=== PATIENT | female | born 1985 | race Two or more races ===

== ENCOUNTER 2017-08-17 07:47 | Emergency (ER) | payer MEDICAID ==
[~2017-08-17] VITALS: Ht 154.9 cm; Wt 95.3 kg
[2017-08-17 08:15] VITALS: BP 126/61
[2017-08-17] MEDS ORDERED: ACETAMINOPHEN 500 MG TAB PO ONE (09:00)
== END 2017-08-17 09:07 | disposition home or self-care (01) ==
LOC: ER 07:47
DX: S36.3 Injury of stomach (principal); X58.XXXD Exposure to other specified factors, subsequent encounter

== ENCOUNTER 2017-12-15 10:38 | Emergency (ER) | payer MEDICAID ==
[~2017-12-15] VITALS: Ht 157.5 cm; Wt 90.7 kg
[2017-12-15 14:15] VITALS: BP 110/72
== END 2017-12-15 14:41 | disposition home or self-care (01) ==
LOC: ER 10:38
DX: S93.402A Sprain of unspecified ligament of left ankle, initial encounter (principal); X58.XXXA Exposure to other specified factors, initial encounter; Y93.89 Activity, other specified; Y99.8 Other external cause status; Y92.89 Other specified places as the place of occurrence of the external cause
CPT/HCPCS: 73610; 93971

== ENCOUNTER 2018-06-04 12:13 | Emergency (ER) | payer MEDICAID ==
[~2018-06-04] VITALS: Ht 157.5 cm; Wt 88.5 kg
[2018-06-04 12:25] VITALS: BP 126/81
[2018-06-04] MEDS ORDERED: KETOROLAC TROMETH 60MG/2ML VIAL IM ONE (14:45)
== END 2018-06-04 15:25 | disposition home or self-care (01) ==
LOC: ER 12:15
DX: R10.31 Right lower quadrant pain (principal); R10.32 Left lower quadrant pain; M54.42 Lumbago with sciatica, left side; M54.41 Lumbago with sciatica, right side
CPT/HCPCS: 74176; 81002; 81025; 96372; 99284; J1885

== ENCOUNTER 2018-10-27 09:50 | Emergency (ER) | payer MEDICAID ==
[~2018-10-27] VITALS: Ht 157.5 cm; Wt 90.7 kg
[2018-10-27 10:29] VITALS: BP 104/67
[2018-10-27] MEDS ORDERED: IBUPROFEN 600 MG TAB PO ONE (11:00)
== END 2018-10-27 10:29 | disposition home or self-care (01) ==
LOC: ER 09:50
DX: M76.62 Achilles tendinitis, left leg (principal)
CPT/HCPCS: 73610; 73630

== ENCOUNTER 2020-02-09 10:54 | Emergency (ER) | payer MEDICAID ==
[~2020-02-09] VITALS: Ht 157.5 cm; Wt 93.0 kg
[2020-02-09 11:00] VITALS: BP 118/79
[2020-02-09] MEDS ORDERED: PANTOPRAZOLE 40 MG/10 ML VIAL INJ IV STA (11:00)
[2020-02-09] MEDS ORDERED: SODIUM CHLORIDE 0.9% 500 ML IVB ONE (11:00)
[2020-02-09] MEDS ORDERED: MORPHINE SULFATE 4 MG/ML SYR/VIAL IV ONE (11:00)
[2020-02-09] MEDS ORDERED: ONDANSETRON HCL 4 MG/2 ML VIAL IV ONE (11:00)
[2020-02-09 11:23] LABS: Basophils # (auto) 0 10 ^3/uL (0-0.2); Basophils % (auto) 0.4 % (0.0-2.0); Eosinophils # (auto) 0.1 10 ^3/uL (0-0.8); Eosinophils % (auto) 2.1 % (0.0-7.0); Hematocrit 40.1 % (36.0-46.0); Lymphocytes # (auto) 2.3 10 ^3/uL (0.4-5.4); Lymphocytes % (auto) 32.2 % (10.0-50.0); Mean Corpuscular Hemoglobin 31.1 pg (28.0-32.0); Mean Corpuscular Hgb Conc. 34.9 g/dL (32.0-36.0); Mean Corpuscular Volume 89.2 fL (80.0-100.0); Monocytes # (auto) 0.4 10 ^3/uL (0-1.3); Monocytes % (auto) 5.9 % (0.0-12.0); Neutrophils # (auto) 4.2 10 ^3/uL (1.6-8.6); Neutrophils % (auto) 59.4 % (37.0-80.0); Platelet Count (auto) 255 10^3/uL (140-450); White Blood Cell 7.1 10^3/uL (4.4-10.8)
[2020-02-09 11:34] LABS: Albumin 4.2 g/dL (3.4-5.0); Calcium 8.8 mg/dL (8.5-10.1); Potassium 3.2 mmol/L (3.5-5.1)
[2020-02-09 11:36] LABS: BUN/Creatinine Ratio 13.2; Bilirubin, Total 1.1 mg/dL (0.2-1.0); Total Protein 7.5 g/dL (6.4-8.2)
== END 2020-02-09 12:31 | disposition home or self-care (01) ==
LOC: ER 10:54
DX: K29.70 Gastritis, unspecified, without bleeding (principal)
CPT/HCPCS: 36415; 76705; 80053; 83690; 85025; 96361; 96374; 96375; 99284; C9113; J2270; J2405; J7040

== ENCOUNTER 2020-02-13 23:33 | Emergency (ER) | payer MEDICAID ==
[~2020-02-13] VITALS: Ht 157.5 cm; Wt 90.7 kg
[2020-02-13 23:52] VITALS: BP 51/8
[2020-02-14 00:27] LABS: Basophils # (auto) 0.1 10 ^3/uL (0-0.2); Basophils % (auto) 0.8 % (0.0-2.0); Eosinophils # (auto) 0 10 ^3/uL (0-0.8); Hematocrit 42.3 % (36.0-46.0); Hemoglobin 14.8 g/dL (12.2-16.2); Lymphocytes % (auto) 9.1 % (10.0-50.0); Mean Corpuscular Hemoglobin 31.1 pg (28.0-32.0); Mean Corpuscular Hgb Conc. 35.1 g/dL (32.0-36.0); Mean Corpuscular Volume 88.6 fL (80.0-100.0); Monocytes # (auto) 0.2 10 ^3/uL (0-1.3); Monocytes % (auto) 2.1 % (0.0-12.0); Neutrophils # (auto) 9.5 10 ^3/uL (1.6-8.6); Platelet Count (auto) 310 10^3/uL (140-450); Red Blood Cells 4.77 10^6/uL (4.0-5.20); Red Cell Distribution Width 13.1 % (11.8-14.3); White Blood Cell 10.8 10^3/uL (4.4-10.8)
[2020-02-14 00:40] LABS: Albumin 4.8 g/dL (3.4-5.0); BUN/Creatinine Ratio 10.4; Potassium 3.2 mmol/L (3.5-5.1)
[2020-02-14 00:43] LABS: Bilirubin, Total 1.4 mg/dL (0.2-1.0)
[2020-02-14 01:25] LABS: Calcium 9.6 mg/dL (8.5-10.1)
== END 2020-02-14 00:59 | disposition left against medical advice (07) ==
LOC: ER 23:34
DX: R10.12 Left upper quadrant pain (principal); R11.2 Nausea with vomiting, unspecified; Z53.21 Procedure and treatment not carried out due to patient leaving prior to being seen by health care provider
CPT/HCPCS: 36415; 80053; 84702; 85025

== ENCOUNTER 2020-03-01 12:36 | Emergency (ER) | payer MEDICAID ==
[~2020-03-01] VITALS: Ht 157.5 cm; Wt 93.0 kg
[2020-03-01 12:50] VITALS: BP 144/122
[2020-03-01] MEDS ORDERED: SODIUM CHLORIDE 0.9% 1,000 ML IVB ONE (13:00)
[2020-03-01] MEDS ORDERED: HYDROmorphone HCL 2 MG/ML VL IV ONE (13:00)
[2020-03-01] MEDS ORDERED: PANTOPRAZOLE 40 MG/10 ML VIAL INJ IV STA (13:00)
[2020-03-01] MEDS ORDERED: PROCHLORPERAZINE EDISYLATE 5 MG/ML 2ML VIAL IV ONE (13:00)
[2020-03-01 14:51] LABS: Basophils # (auto) 0.1 10 ^3/uL (0-0.2); Basophils % (auto) 0.9 % (0.0-2.0); Eosinophils # (auto) 0 10 ^3/uL (0-0.8); Eosinophils % (auto) 0.3 % (0.0-7.0); Hematocrit 45.8 % (36.0-46.0); Lymphocytes # (auto) 1.1 10 ^3/uL (0.4-5.4); Mean Corpuscular Hemoglobin 31.2 pg (28.0-32.0); Mean Corpuscular Hgb Conc. 34.9 g/dL (32.0-36.0); Mean Corpuscular Volume 89.3 fL (80.0-100.0); Monocytes # (auto) 0.6 10 ^3/uL (0-1.3); Monocytes % (auto) 5.7 % (0.0-12.0); Neutrophils # (auto) 9.1 10 ^3/uL (1.6-8.6); Neutrophils % (auto) 83.1 % (37.0-80.0); Nucleated Red Blood Cells % 0.1 %; Platelet Count (auto) 304 10^3/uL (140-450); Red Blood Cells 5.12 10^6/uL (4.0-5.20); Red Cell Distribution Width 13.5 % (11.8-14.3); White Blood Cell 10.9 10^3/uL (4.4-10.8)
[2020-03-01 15:17] LABS: Albumin 4.4 g/dL (3.4-5.0); Calcium 9.6 mg/dL (8.5-10.1); Potassium 3.1 mmol/L (3.5-5.1)
[2020-03-01 15:21] LABS: BUN/Creatinine Ratio 11.1; Bilirubin, Total 1.2 mg/dL (0.2-1.0); Total Protein 8.1 g/dL (6.4-8.2)
== END 2020-03-01 18:20 | disposition home or self-care (01) ==
LOC: ER 12:36
DX: K29.00 Acute gastritis without bleeding (principal); R11.10 Vomiting, unspecified; F12.90 Cannabis use, unspecified, uncomplicated
CPT/HCPCS: 36415; 80053; 83690; 85025; 99283; J7030

== ENCOUNTER 2022-07-12 23:14 | Emergency (ER) | payer MEDICAID ==
[~2022-07-12] VITALS: Ht 152.4 cm; Wt 65.0 kg
[2022-07-13 01:38] VITALS: BP 116/76
[2022-07-13] MEDS ORDERED: ACET-1158 PO (01:52)
[2022-07-13] MEDS ORDERED: SULF800T7 PO (01:52)
[2022-07-13] MEDS ORDERED: TETANUS-DIPTH-ACEL PERTUSSIS 0.5ML SYR Tdap IM ONE (02:00)
[2022-07-13] MEDS ORDERED: ACETAMINOPHEN 325 MG TAB PO ONE (02:15)
== END 2022-07-13 02:20 | disposition home or self-care (01) ==
LOC: ER 23:14
DX: S80.862A Insect bite (nonvenomous), left lower leg, initial encounter (principal); Z79.899 Other long term (current) drug therapy; W57.XXXA Bitten or stung by nonvenomous insect and other nonvenomous arthropods, initial encounter; Y93.89 Activity, other specified; Y92.89 Other specified places as the place of occurrence of the external cause; Y99.8 Other external cause status
CPT/HCPCS: 90471; 90715

== ENCOUNTER 2024-07-02 00:48 | Inpatient (IN) | payer MEDICAID, OTHER ==
[~2024-07-02] VITALS: Ht 157.5 cm; Wt 75.1 kg
[2024-07-02] VITALS (8 sets, daily range): BP systolic 99–116; BP diastolic 56–82; PULSE 78–100; RESP 17–20; TEMP 97.9–98.2; O2SAT 95–99
[~2024-07-02 00:48] MED LIST: ACET500T58 PO; CEPH250C PO; ERGO1CAP23 PO; METR-344 PO; PANT40T PO; PANT40TA2 PO; SULF800T23 PO; ZOFR4T PO
--- NOTE | 2024-07-02 01:28 | ED.PDOC ---
General HPI Comments 39-year-old female who came to ER for flank pains. Has a history of kidney stones. States for the past 2 days, episodes of sharp, aching, cramping bilateral flank pains, left greater than right, associated with nausea, vomiting, diarrhea and dysuria. States pain is similar to when she had kidney stones before Chief Complaint: Flank Pain Time Seen by MD: 01:27 Reviewed notes: Nurses Notes Allergies: Coded Allergies: No Known Drug Allergy (Verified Allergy, Unknown, 07/02/24) Information Source: Patient Mode of Arrival: Ambulatory Severity: Moderate Inability to void: Mild Timing: Days Duration: Intermittent Has not urinated for: Minutes Onset: Spontaneous Symptoms: Dysuria History of: Kidney stone Location: (R) Flank, (L)Flank associated signs and symptoms: Nausea, Vomiting, Flank Pain, Back Pain, Dysuria Past Medical History PAST MEDICAL HISTORY: Kidney Stones Surgical History: Denies all surgeries MANAGER 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 INFRASTRU[employer]URE Hx Family History Family History: Reviewed,noncontributory to illness Social History Smoker: Non-Smoker Alcohol: Denies ETOH Use Drugs: Denies Drug Use Lives In: Home Constitutional: denies: chills, diaphoresis, fatigue, fever, malaise, sweats, weakness, others EENTM: denies: blurred vision, double vision, ear bleeding, ear discharge, ear drainage, ear pain, ear ringing, eye pain, eye redness, hearing loss, mouth pa in, mouth swelling, nasal discharge, nose bleeding, nose congestion, nose pain, photophobia, tearing, throat pain, throat swelling, voice changes, others Respiratory: denies: cough, hemoptysis, orthopnea, SOB at rest, shortness of breath, SOB with excertion, stridor, wheezing, others Cardiovascular: denies: chest pain, dizzy spells, diaphoresis, Dyspnea on exertion, edema, irregular heart beat, left arm pain, lightheadedness, palpitations, PND, syncope, others Gastrointestinal: reports: diarrhea, nausea, vomiting; denies: abdomen distended, abdominal pain, blood streaked bowels, constipated, dysphagia, difficulty swallowing, hematemesis, melena, poor appetite, poor fluid intake, rectal bleeding, rectal pain, others Genitourinary: reports: burning, dysuria, flank pain; denies: abnormal vagina bleeding, dyspareunia, frequency, hematuria, incontinence, pain, , vagina discharge, urgency, others Neurological: denies: dizziness, fainting, headache, left sided numbness, left sided weakness, numbness, paresthesia, pre-existing deficit, right sided numbness, right sided weakness, seizure, speech problems, tingling, tremors, weakness, others Musculoskeletal: denies: back pain, gout, joint pain, joint swelling, muscle pain, muscle stiffness, neck pain, others Integumetry: denies: bruises, change in color, change in hair/nails, dryness, laceration, lesions, lumps, rash, wounds, others Allergic/Immunocompromised: denies: Difficulty Healing, Frequent Infections, Hives, Itching, others Hematologic/Lymphatic: denies: anemia, blood clots, easy bleeding, easy bruising, swollen glands, others Endocrine: denies: excessive hunger, excessive sweating, excessive thirst, excessive urination, flushing, intolerance to cold, intolerance to heat, unexplained weight gain, unexplained weight loss, others Psychiatric: denies: anxiety, bipolar disorder, depression, hopeless, panic disorder, schizophrenia, sleepless, suicidal, others Physical Exam General Appearance: No Apparent Distress, Normal HEENT: Normal ENT Inspection, Pharynx Normal, TMs Normal Neck: Full Range of Motion, Non-Tender, Normal, Normal Inspection Respiratory: Chest Non-Tender, Lungs Clear, No Accessory Muscle Use, No Respiratory Distress, Normal Breath Sounds Cardiovascular: No Edema, No JVD, No Murmur, No Gallop, Normal Peripheral Pulses, Regular Rate/Rhythm Breast Exam: Deferred Gastrointestinal: No Organomegaly, No Pulsatile Mass, Normal Bowel Sounds, Soft, Tenderness (left CVA) Genitalia: Deferred Pelvic: Deferred Rectal: Deferred Extremities: No calf tenderness, Normal capillary refill, Normal inspection, Normal range of motion, Non-tender, No pedal edema Musculoskeletal : Apperance: Normal Neurologic: Alert, portfolio architect II-XII nml as Tested, No Motor Deficits, Normal Affect, Normal Mood, No Sensory Deficits Cerebellar Function: Normal Reflexes: Normal Skin: Dry, Normal Color, Warm Lymphatic: No Adenopathy Was a procedure done? Was a procedure done?: No Differential Diagnosis Kidney stone (Female): Musculoskeletal pain, Pancreatitis, Pyelonephritis, Strain, Urinary obstruction, Urolithiasis Urinary Problem (Female): Intrauterine , Pyelonephritis, Urinary retention, Urolithiasis, UTI X-Ray, Labs, Meds, VS Vital Signs Date Time Temp Pulse Resp B/P (MAP) Pulse Ox O2 Delivery O2 Flow Rate FiO2 07/02/24 02:47 100 20 127/67 07/02/24 02:45 108 20 127/67 07/02/24 02:44 98.2 07/02/24 02:20 99 19 120/67 07/02/24 02:02 98.9 07/02/24 02:02 100 17 97 Room Air* 0 21 07/02/24 01:46 98.9 98 32 116/56 (76) 97 98.9 07/02/24 01:00 98.1 82 22 122/103 (109) 96 98.1 Lab Test 07/02/24 01:48 07/02/24 01:25 Range/Units Urine Color Light-orange Yellow Urine Clarity Turbid H Clear Urine pH 6.5 5.0-9.0 Urine Specific [place] 1.028 1.001-1.035 Urine Protein 1+ H Negative Urine Ketones Trace Negative Urine Blood 3+ H Negative /uL Urine Nitrite Negative Negative Urine Bilirubin Negative Negative Urine Urobilinogen 2 H Negative mg/dL Urine Leukocyte Esterase 2+ Negative /uL Urine RBC 2090 0 - 4 /hpf Urine Microscopic WBC 33 H 0-5 /HPF Urine Squamous Epithelial Cells Mod <5 /hpf Urine Bacteria None seen None Seen /hpf Urine Mucus Few None Seen Urine Glucose Normal Normal mg/dL Urine Test Negative Negative White Blood Count 7.4 4.4-10.8 10^3/uL Red Blood Count 4.39 4.0-5.20 10^6/uL Hemoglobin 13.8 12.2-16.2 g/dL Hematocrit 38.9 36.0-46.0 % Mean Corpuscular Volume 88.5 80.0-100.0 fL Mean Corpuscular Hemoglobin 31.5 28.0-32.0 pg Mean Corpuscular Hemoglobin Concent 35.6 32.0-36.0 g/dL Red Cell Distribution Width 12.8 11.8-14.3 % Platelet Count 323 140-450 10^3/uL Mean Platelet Volume 7.8 6.9-10.8 fL Neutrophils (%) (Auto) 65.8 37.0-80.0 % Lymphocytes (%) (Auto) 25.2 10.0-50.0 % Monocytes (%) (Auto) 7.5 0.0-12.0 % Eosinophils (%) (Auto) 0.6 0.0-7.0 % Basophils (%) (Auto) 0.9 0.0-2.0 % Neutrophils # (Auto) 4.9 1.6-8.6 10 ^3/uL Lymphocytes # (Auto) 1.9 0.4-5.4 10 ^3/uL Monocytes # (Auto) 0.6 0-1.3 10 ^3/uL Eosinophils # (Auto) 0 0-0.8 10 ^3/uL Basophils # (Auto) 0.1 0-0.2 10 ^3/uL Nucleated Red Blood Cells 0.2 % Sodium Level 141 136-145 mmol/L Potassium Level 2.7 L 3.5-5.1 mmol/L Chloride Level 100 98-107 mmol/L Carbon Dioxide Level 29 20-31 mmol/L Anion Gap 12 5-15 Blood Urea Nitrogen 8 L 9-23 mg/dL Creatinine 0.81 0.550-1.02 mg/dL Glomerular Filtration Rate Calc 95 >90 mL/min BUN/Creatinine Ratio 9.9 L 10.0-20.0 Serum Glucose 119 H 74-106 mg/dL Calcium Level 10.3 8.7-10.4 mg/dL Current Medications Medications (Trade) Dose Ordered Sig/Carla Route Start Time Stop Time Status Last Admin Sodium Chloride 1,000 ml @ 1,000 mls/hr Q1H ONCE IV 07/02/24 01:30 07/02/24 02:29 DC 07/02/24 02:01 Ondansetron HCl (Zofran) 4 mg ONCE ONCE IV 07/02/24 01:30 07/02/24 01:31 DC 07/02/24 02:01 Ketorolac Tromethamine (Toradol Injection) 15 mg ONCE ONCE IV 07/02/24 01:30 07/02/24 01:31 DC 07/02/24 02:01 Acetaminophen (Tylenol Tablet) 650 mg ONCE ONCE PO 07/02/24 01:30 07/02/24 01:31 DC 07/02/24 02:02 Morphine Sulfate 4 mg ONCE ONCE IV 07/02/24 02:15 07/02/24 02:16 DC 07/02/24 02:20 Haloperidol Lactate (Haldol) 10 mg ONCE ONCE IM 07/02/24 03:00 07/02/24 03:01 DC 07/02/24 03:06 Time of 1ST Reevaluation: 01:21 Reevaluation 1ST: Unchanged Patient Education/Counseling: Diagnosis, Treatment Family Education/Counseling: No Family Present Departure 1 Departure Time of Disposition: 03:28 (Patient presented with abdominal pain that was concerning for possible appendicits, gastritis, cholecystitis, colitis, gastroenteritis, sbo, or orther possible surgical emergency. Data: 1. I ordered and reviewed the result of at least 3 labs including a CBC, BMP, and Urinalysis. 2. I independently interpreted the following tests: CT Abdoment and Pelvis is concerning for left renal colic .Risk:This patient has a high risk of morbidity due to further diagnostic testing or treatment and may suffer from an acute abdominal process disorder. Workup reveals left renal colic with hydronephrosis and patient should be admitted for further workup. and possible expert consultation. ) Impression: Primary Impression: Renal colic on left side Additional Impression: Hydronephrosis Qualified Codes: N13.2 - Hydronephrosis with renal and ureteral calculous obstruction Disposition: ADMITTED INPATIENT Admit to: Med Surg Condition: Serious Critical Care Note Critical Care Time?: Yes Critical care comment: Intractable abdominal pain Authorized and Performed by: Gordon Castano MD Total critical care time: Approximately 38 minutes Due to a high probability of clinically significant, life threatening de terioration, the patient required my highest level of preparedness to intervene emergently and I personally spent this critical care time directly and personally managing the patient. This critical care time included obtaining a history; examining the patient; pulse oximetry; ordering and review of studies; arranging urgent treatment with development of a management plan; evaluation of patient's response to treatment; frequent reassessment; and, discussions with other providers. This critical care time was performed to assess and manage the high probability of imminent, life-threatening deterioration that could result in multi-organ failure. It was exclusive of separately billable procedures and treating other patients and teaching time. Please see my other sections and the rest of the note for further information on patient assessment and treatment. Stability Stability form required: No Heart Score Heart Score: Heart Score Response (Comments) Value History N/A 0 EKG N/A 0 Age N/A 0 Risk Factors N/A 0 Troponin N/A 0 Total 0 I personally scribed for GORDON CASTANO MD ([email or web address]) on 07/02/24 at 01:28. Electronically submitted by Joel Nguyen ([email or web address]). GORDON CASTANO MD Jul 02, 2024 01:28
[2024-07-02 01:50] LABS: Urine Bacteria None Seen /hpf (None Seen)
[2024-07-02 01:51] LABS: Basophils # (auto) 0.1 10 ^3/uL (0-0.2); Basophils % (auto) 0.9 % (0.0-2.0); Eosinophils # (auto) 0 10 ^3/uL (0-0.8); Eosinophils % (auto) 0.6 % (0.0-7.0); Hematocrit 38.9 % (36.0-46.0); Hemoglobin 13.8 g/dL (12.2-16.2); Lymphocytes # (auto) 1.9 10 ^3/uL (0.4-5.4); Lymphocytes % (auto) 25.2 % (10.0-50.0); Mean Corpuscular Hemoglobin 31.5 pg (28.0-32.0); Mean Corpuscular Hgb Conc. 35.6 g/dL (32.0-36.0); Mean Corpuscular Volume 88.5 fL (80.0-100.0); Monocytes # (auto) 0.6 10 ^3/uL (0-1.3); Monocytes % (auto) 7.5 % (0.0-12.0); Neutrophils # (auto) 4.9 10 ^3/uL (1.6-8.6); Neutrophils % (auto) 65.8 % (37.0-80.0); Nucleated Red Blood Cells % 0.2 %; Platelet Count (auto) 323 10^3/uL (140-450); Red Blood Cells 4.39 10^6/uL (4.0-5.20); Red Cell Distribution Width 12.8 % (11.8-14.3); White Blood Cell 7.4 10^3/uL (4.4-10.8)
[2024-07-02 01:59] LABS: Anion Gap 12 (5-15); Carbon Dioxide 29 mmol/L (20-31); Chloride 100 mmol/L (98-107); Sodium 141 mmol/L (136-145)
[2024-07-02 02:00] LABS: Calcium 10.3 mg/dL (8.7-10.4)
[2024-07-02] MEDS: KETOROLAC TROMETH 30 MG/ML 1ML VIAL IV ONE (02:01)
[2024-07-02] MEDS: ONDANSETRON HCL 4 MG/2 ML VIAL IV ONE (02:01)
[2024-07-02] MEDS: SODIUM CHLORIDE 0.9% 1,000 ML IV ONE (02:01)
[2024-07-02 02:02] LABS: Potassium 2.7 mmol/L (3.5-5.1)
[2024-07-02] MEDS: ACETAMINOPHEN 325 MG TAB PO ONE (02:02)
[2024-07-02 02:05] LABS: BUN/Creatinine Ratio 9.9 (10.0-20.0); Blood Urea Nitrogen 8 mg/dL (9-23); Glucose 119 mg/dL (74-106)
[2024-07-02 02:20] LABS: Urine Blood 3+ /uL (Negative); Urine Clarity Turbid (Clear); Urine Color Light-Orange (Yellow); Urine Mucus FEW (None Seen); Urine Protein, UAD 1+ (Negative); Urine Specific Gravity 1.028 (1.001-1.035); Urine Squamous Epithelial Cell MOD /hpf (<5); Urine Urobilinogen 2 mg/dL (Negative); Urine WBC 33 /HPF (0-5); Urine pH 6.5 (5.0-9.0)
[2024-07-02] MEDS: MORPHINE SULFATE 4 MG/ML SYR/VIAL IV ONE ×2 (02:20→02:47)
--- NOTE | 2024-07-02 03:05 | DVH ---
Exam: CT CT AB PEL WO CON-NO ORAL OR IV History: Flank pain Comparison Study: None available at time of dictation. Technique: Multidetector spiral CT of the abdomen was performed from lung bases to iliac crest. Imagi ng was performed without IV contrast. Axial, coronal and sagittal multiplanar reformats were obtained from the axial data set by the technologist. Radiation Dose : CT Dose: CTDI volume is 11.24 mGy. Dose-length product is 654.08 mGy*cm Findings: Evaluation of solid organs is limited due to lack of intravenous contrast use. Lung Bases: No acute or significant lung base finding. Normal heart size. No pleural or pericardial effusion. Liver: The liver is normal in size. No focal lesions. Gallbladder and Biliary Tree: Unremarkable Spleen: Unremarkable Pancreas: The pancreas is grossly normal in appearance. Adrenal Glands: Unremarkable Kidneys: Moderate left hydronephrosis and dilatation of the proximal ureter secondary to a partially obstructing proximal 0.3 cm intraureteral calcification. The right kidney is grossly normal without c alculi or hydronephrosis. Visualized Bowel: The stomach is grossly normal in appearance. Small bowel and colon are normal in ca liber and distribution. The appendix is normal in appearance. Ascites: Absent Lymphadenopathy: No mesenteric, retroperitoneal or periportal lymphadenopathy. Abdominal Wall and Mesentery: Unremarkable. Vasculature: The visualized abdominal aorta is normal in size and caliber. Evaluation of abdominal a nd pelvic vessels is limited due to lack of intravenous contrast. Musculoskeletal: No aggressive focal bony lesions, acute fractures or dislocation. Moderate to severe disc height loss at the L5-S1 level with corresponding endplate sclerosis and anterior osteophytosis . IMPRESSION: 1. Moderate left hydronephrosis secondary to a proximal partially obstructing intraureteral calculus. Radiation optimization: All CT scans at this facility use at least one of these dose optimization mari hniques: automated exposure control mA and/or kV adjustment per patient size (includes targeted exam s where dose is matched to clinical indication) or iterative reconstruction.
[2024-07-02] MEDS: HALOPERIDOL LACTATE 5 MG/ML INJ VIAL IM ONE (03:06)
[2024-07-02] MEDS: cefTRIAXone 1GM/50ML D5W 50 ML IV ONE (04:45)
[2024-07-02] MEDS ORDERED: ACETAMINOPHEN 325 MG TAB PO PRN (04:45)
[2024-07-02] MEDS ORDERED: DOCUSATE SOD 100 MG CAP PO PRN (04:45)
[2024-07-02] MEDS: POTASSIUM CHL 20 Meq TABLET PO ONE (05:12)
[2024-07-02] MEDS: POTASSIUM CHL 20MEQ/50ML 50 ML IV SCH (05:13)
[2024-07-02 05:28] LABS: Basophils # (auto) 0 10 ^3/uL (0-0.2); Basophils % (auto) 0.2 % (0.0-2.0); Eosinophils # (auto) 0 10 ^3/uL (0-0.8); Eosinophils % (auto) 0.3 % (0.0-7.0); Hematocrit 33.6 % (36.0-46.0); Hemoglobin 11.7 g/dL (12.2-16.2); Lymphocytes # (auto) 1.3 10 ^3/uL (0.4-5.4); Mean Corpuscular Hemoglobin 30.8 pg (28.0-32.0); Mean Corpuscular Hgb Conc. 34.7 g/dL (32.0-36.0); Mean Corpuscular Volume 88.6 fL (80.0-100.0); Monocytes # (auto) 0.5 10 ^3/uL (0-1.3); Monocytes % (auto) 8.2 % (0.0-12.0); Neutrophils # (auto) 3.7 10 ^3/uL (1.6-8.6); Neutrophils % (auto) 67.3 % (37.0-80.0); Nucleated Red Blood Cells % 0.1 %; Platelet Count (auto) 237 10^3/uL (140-450); Red Cell Distribution Width 12.5 % (11.8-14.3); White Blood Cell 5.5 10^3/uL (4.4-10.8)
[2024-07-02 05:41] LABS: Alanine Aminotransferase 22 U/L (7-40); Albumin 3.9 g/dL (3.2-4.8); Alkaline Phosphatase 52 U/L (46-116); Anion Gap 12 (5-15); Aspartate Aminotransferase 15 U/L (13-40); BUN/Creatinine Ratio 8.8 (10.0-20.0); Carbon Dioxide 26 mmol/L (20-31); Chloride 102 mmol/L (98-107); Sodium 140 mmol/L (136-145); Total Protein 5.7 g/dL (5.7-8.2)
[2024-07-02 05:42] LABS: Bilirubin, Total 0.8 mg/dL (0.2-1.0)
[2024-07-02] MEDS: ONDANSETRON HCL 4 MG/2 ML VIAL IV PRN (05:45)
[2024-07-02 05:47] LABS: Blood Urea Nitrogen 7 mg/dL (9-23); Calcium 8.4 mg/dL (8.7-10.4); Glucose 115 mg/dL (74-106)
[2024-07-02] MEDS: MORPHINE SULFATE INJ 2 MG/ml SYRG IV PRN (05:48)
[2024-07-02] MEDS: SODIUM CHLOR 0.9% PF (SALINE LOCK) 10ML VIAL/SYR IV SCH (05:48)
[2024-07-02 05:49] LABS: Potassium 2.3 mmol/L (3.5-5.1)
--- NOTE | 2024-07-02 05:55 | DVHHP2 ---
History of Present Illness Reason for Visit: Hydronephrosis History of Present Illness The patient is a 39-year-old female with past medical history of kidney stone presented to [facility] ED with complaint of left flank pain. Patient reports symptoms progressively get worse with cramping bilateral flank pain, left greater than right, sharp in nature, aching, associated nausea, vomiting, diarrhea, dysuria, rating 8/10 numeric scale, getting worse that prompted this visit. Patient was seen and evaluated in the ED, laboratory data shows WBC 7.4, platelets 323, sodium 141, potassium 2.7, BUN 8, creatinine 0.81, GFR 95, glucose 119, urinalysis positive for urinary tract infection. Abdomen/pelvis CT revealing moderate left hydronephrosis secondary to a proximal partially obstructing intraureteral calculus. Patient was given morphine sulfate 4 mg IV x1, please see medication orders section in the computer. On my assessment, patient denied chest pain, no headache, no dizziness, no shortness of breaths, no nausea, no vomiting at this moment, no fever, no chills. Patient was admitted for further evaluation and medical management. Past Medical History Kidney Stones Past Surgical History Denies all surgeries Family History Reviewed, noncontributory to the management of this case. Past Social History The patient lives at home, denies smoking, alcohol or illicit drugs abuse. Review of Systems Constitutional: No: Fever, Chills, Sweats, Weakness, Malaise, Other Eyes: No: Pain, Vision change, Conjunctivae inflammation, Eyelid inflammation, Other, Redness ENT: No: Ear pain, Ear discharge, Nose pain, Nose discharge, Nose congestion, Mouth pain, Mouth swelling, Throat pain, Throat swelling, Other Respiratory: No: Cough, Dry, Shortness of breath, SOB with excertion, Wheezing, Hemoptysis, Pleuritic Pain, Sputum, Wheezing, Other Cardiovascular: No: Chest Pain, Palpitations, Orthopnea, Paroxysmal Noc. Dyspnea, Edema, Lt Headedness, Other Gastrointestinal: Nausea, Vomiting, Diarrhea; No: Abdominal Pain, Constipation, Melena, Hematochezia, Other Genitourinary: Dysuria; No Frequency, No Incontinence, No Hematuria, No Retention; Other (Flank pain, burning.) Musculoskeletal: No: other, neck pain, shoulder pain, arm pain, back pain, hand pain, leg pain, foot pain Skin: No: Rash, Lesions, Jaundice, Bruising, Other Neurological: No: Weakness, Numbness, Incoordination, Change in speech, Confusion, Seizures, Other Allergies: Coded Allergies: No Known Drug Allergy (Verified Allergy, Unknown, 07/02/24) Medications Current Medications Medications Dose Ordered Sig/Carla Route Start Time Stop Time Status Last Admin Dose Admin Ceftriaxone Sodium 50 ml @ 100 mls/hr DAILY@09 IV 07/03/24 09:00 Sodium Chloride 10 ml Q8HR IV 07/02/24 06:00 07/02/24 05:48 10 ML Acetaminophen/ Hydrocodone Bitart 1 tab Q4HP PRN PO 07/02/24 04:45 Ondansetron HCl 4 mg Q4HP PRN IV 07/02/24 04:45 07/02/24 05:45 4 MG Docusate Sodium 100 mg BIDPRN PRN PO 07/02/24 04:45 Acetaminophen 650 mg Q6HP PRN PO 07/02/24 04:45 Morphine Sulfate 2 mg Q4HPRN PRN IV 07/02/24 04:45 07/02/24 05:48 2 MG Potassium Chloride 50 ml @ 25 mls/hr Q2H IV 07/02/24 05:15 07/02/24 09:14 07/02/24 05:13 25 MLS/HR Exam Vital Signs Vital Signs Date Time Temp Pulse Resp B/P (MAP) Pulse Ox O2 Delivery O2 Flow Rate FiO2 07/02/24 05:48 86 22 101/60 07/02/24 04:22 98 Room Air* 0 21 07/02/24 02:44 98.2 General Appearance: Alert, Oriented X3, Cooperative, No acute distress HEENT: Atraumatic, PERRLA, EOMI, Mucous membr. moist/pink Respiratory: Clear to auscultation, Normal air movement Cardiovascular: Regular rate, Normal S1, Normal S2, No murmurs Abdominal: Normal bowel sounds, Soft, No hepatospenomegaly, No masses, Other (Flank pain) Extremities: No clubbing, No cyanosis, No edema, Normal pulses, No tenderne ss/swelling Skin: No rashes, No breakdown, No significant lesion Neuro: Normal gait, Normal speech, Strength at 5/5 X4 ext, Normal tone, Sensation intact, Cranial nerves 3-12 NL, Reflexes 2+ Psych/Mental Status: Mental status NL, Mood NL Labs/Xrays Labs Test 07/02/24 04:52 07/02/24 01:48 Range/Units White Blood Count 5.5 # 4.4-10.8 10^3/uL Red Blood Count 3.80 L 4.0-5.20 10^6/uL Hemoglobin 11.7 #L 12.2-16.2 g/dL Hematocrit 33.6 #L 36.0-46.0 % Mean Corpuscular Volume 88.6 80.0-100.0 fL Mean Corpuscular Hemoglobin 30.8 28.0-32.0 pg Mean Corpuscular Hemoglobin Concent 34.7 32.0-36.0 g/dL Red Cell Distribution Width 12.5 11.8-14.3 % Platelet Count 237 140-450 10^3/uL Mean Platelet Volume 7.8 6.9-10.8 fL Neutrophils (%) (Auto) 67.3 37.0-80.0 % Lymphocytes (%) (Auto) 24.0 10.0-50.0 % Monocytes (%) (Auto) 8.2 0.0-12.0 % Eosinophils (%) (Auto) 0.3 0.0-7.0 % Basophils (%) (Auto) 0.2 0.0-2.0 % Neutrophils # (Auto) 3.7 1.6-8.6 10 ^3/uL Lymphocytes # (Auto) 1.3 0.4-5.4 10 ^3/uL Monocytes # (Auto) 0.5 0-1.3 10 ^3/uL Eosinophils # (Auto) 0 0-0.8 10 ^3/uL Basophils # (Auto) 0 0-0.2 10 ^3/uL Nucleated Red Blood Cells 0.1 % Sodium Level 140 136-145 mmol/L Potassium Level 2.3 *L 3.5-5.1 mmol/L Chloride Level 102 98-107 mmol/L Carbon Dioxide Level 26 20-31 mmol/L Anion Gap 12 5-15 Blood Urea Nitrogen 7 L 9-23 mg/dL Creatinine 0.80 0.550-1.02 mg/dL Glomerular Filtration Rate Calc 96 >90 mL/min BUN/Creatinine Ratio 8.8 L 10.0-20.0 Serum Glucose 115 H 74-106 mg/dL Calcium Level 8.4 L 8.7-10.4 mg/dL Total Bilirubin 0.8 0.2-1.0 mg/dL Aspartate Amino Transferase (AST) 15 13-40 U/L Alanine Aminotransferase (ALT) 22 7-40 U/L Alkaline Phosphatase 52 46-116 U/L Total Protein 5.7 5.7-8.2 g/dL Albumin 3.9 3.2-4.8 g/dL Urine Color Light-orange Yellow Urine Clarity Turbid H Clear Urine pH 6.5 5.0-9.0 Urine Specific [place] 1.028 1.001-1.035 Urine Protein 1+ H Negative Urine Ketones Trace Negative Urine Blood 3+ H Negative /uL Urine Nitrite Negative Negative Urine Bilirubin Negative Negative Urine Urobilinogen 2 H Negative mg/dL Urine Leukocyte Esterase 2+ Negative /uL Urine RBC 2090 0 - 4 /hpf Urine Microscopic WBC 33 H 0-5 /HPF Urine Squamous Epithelial Cells Mod <5 /hpf Urine Bacteria None seen None Seen /hpf Urine Mucus Few None Seen Urine Glucose Normal Normal mg/dL Urine Test Negative Negative PATIENT: ESTEFANI MEJIAS ACCT: [id number] UNIT: [id number] : 1985 LOC: ER ROOM / BED: / AGE / SEX: 39 / F ADM STATUS: REG ER SERVICE 0233 ORDERING PHYSICIAN: GORDON ADAMS MD PROCEDURE(s): ABPL - CT AB PEL WO CON-NO ORAL OR IV REASON: Flank pain ORDER NUMBER(s): [id number], ACCESSION NUMBER(s): [id number] Exam: CT CT AB PEL WO CON-NO ORAL OR IV History: Flank pain Comparison Study: None available at time of dictation. Technique: Multidetector spiral CT of the abdomen was performed from lung bases to iliac crest. Imaging was performed without IV contrast. Axial, coronal and sagittal multiplanar reformats were obtained from the axial data set by the technologist. Radiation Dose : CT Dose: CTDI volume is 11.24 mGy. Dose-length product is 654.08 mGy*cm Findings: Evaluation of solid organs is limited due to lack of intravenous contrast use. Lung Bases: No acute or significant lung base finding. Normal heart size. No pleural or pericardial effusion. Liver: The liver is normal in size. No focal lesions. Gallbladder and Biliary Tree: Unremarkable Spleen: Unremarkable Pancreas: The pancreas is grossly normal in appearance. Adrenal Glands: Unremarkable Kidneys: Moderate left hydronephrosis and dilatation of the proximal ureter secondary to a partially obstructing proximal 0.3 cm intraureteral calcification. The right kidney is grossly normal without calculi or hydronephrosis. Visualized Bowel: The stomach is grossly normal in appearance. Small bowel and colon are normal in caliber and distribution. The appendix is normal in appearance. Ascites: Absent Lymphadenopathy: No mesenteric, retroperitoneal or periportal lymphadenopathy. Abdominal Wall and Mesentery: Unremarkable. Vasculature: The visualized abdominal aorta is normal in size and caliber. Evaluation of abdominal and pelvic vessels is limited due to lack of intravenous contrast. Musculoskeletal: No aggressive focal bony lesions, acute fractures or dislocation. Moderate to severe disc height loss at the L5-S1 level with corresponding endplate sclerosis and anterior osteophytosis. IMPRESSION: 1. Moderate left hydronephrosis secondary to a proximal partially obstructing intraureteral calculus. Assessment/Plan Assessment/Plan Renal colic on left side Hypokalemia Hydronephrosis Urinary tract infection Hydronephrosis with renal and ureteral calculous obstruction Plan 1. Admit to Med-Surg unit 2. Breathing treatment 3. Pain control management 4. Management of fluids and electrolytes 5. Consultation for Urology 6. Diagnostic tests abdomen/pelvis CT 7. DVT prophylaxis-on SCDs 8. Repeat labs CBC, CMP in a.m. 9. Continue with current medical management 10. Treatment plan discussed with patient and RN. Patient verbalized understanding. Plan discussed with: Patient, Other (RN) My Orders Orders - MOY GAMBINO DNP Procedure Category Date Status Time Urine Bacterial LYNN 07/02/24 In Process Culture 04:33 Allergies ASPEN 07/02/24 In Process 04:33 Code Status CODE 07/02/24 Transmitted 04:33 Sodium Chloride Lock PHA 07/02/24 In Process (Saline Lock Ns) 06:00 Oxygen Per Hour RT 07/02/24 Transmitted 04:33 Hydrocodone-Acet PHA 07/02/24 In Process 5/325mg Tab ([place] 04:45 Ondansetron Hcl PHA 07/02/24 In Process (Zofran) 04:45 Docusate Sodium PHA 07/02/24 In Process Capsule (Colace 04:45 Complete Blood Count LAB 07/03/24 Verified 04:00 Comprehensive LAB 07/03/24 Verified Metabolic Panel 04:00 Cardiac DIET 07/02/24 Transmitted Diet-2gna,Lofat,Lochol Breakfast Condition: Serious ASPEN 07/02/24 In Process 04:33 Acetaminophen Tablet PHA 07/02/24 In Process (Tylenol Tablet) 04:45 Bedrest With Bathroom ASPEN 07/02/24 In Process Privileg 04:33 Morphine Sulfate PHA 07/02/24 In Process Injection 04:45 Sequential ASPEN 07/02/24 In Process Compression Device Ceftriaxone 1gm/50ml PHA 07/03/24 In Process D5w (Rocephin) 09:00 Potassium Chl PHA 07/02/24 In Process 20meq/50ml (Potassium 05:15 Problem List: (1) Renal colic on left side (2) Hypokalemia (3) Urinary tract infection (4) Hydronephrosis (5) Hydronephrosis with renal and ureteral calculous obstruction Date of Service: Jul 02, 2024 Billing Provider: MOY GAMBINO DNP Common Visit Codes: 23739-ISQNEAJ INP/OBS CARE (HIGH) MOY GAMBINO DNP Jul 02, 2024 05:55
[2024-07-02] MEDS ORDERED: MORPHINE SULFATE INJ 2 MG/ml SYRG IV PRN (06:00)
[2024-07-02] MEDS ORDERED: NITROGLYCERIN 0.4 MG SL TAB SL PRN (06:00)
[2024-07-02] MEDS: POTASSIUM EFFERVESENT TAB 25 MEQ PO STA (09:58)
--- NOTE | 2024-07-02 14:42 | DVHPNRES ---
Progress Note Date Seen: Jul 02, 2024 Resident Creating Document: GONZALO LOBATO RESIDENT Has the PT tested + for MRSA If YES, has PT been informed?: No Medical Necessity Reason Pt with a Central, PICC or Fol: No Subjective Review of Systems Lulu Fregoso is a 39-year-old female with a known history of right-sided nephrolithiasis, who presented to the emergency department with a chief complaint of worsening left flank pain. She reports that the pain began gradually but intensified over time, becoming sharp, cramping, and aching in nature. The pain is worse on the left but has also been present on the right side intermittently. Pain is rated as severe, non-radiating, and associated with nausea, vomiting, and diarrhea. On evaluation, urinalysis was positive for urinary tract infection, and a CT abdomen/pelvis revealed moderate left-sided hydronephrosis secondary to a partially obstructing proximal ureteral calculus, consistent with renal colic and obstructive uropathy. The patient was treated with IV morphine for pain control, and IV fluids for hydration and electrolyte correction. Initial labs showed hypokalemia, which was corrected with potassium replacement. Vital signs remained stable throughout the ED course. The patient is currently admitted to the med-surg unit for pain management, fluid and electrolyte monitoring, and further evaluation. A urology consultation is pending for possible intervention based on the degree of obstruction and risk of progression. hypokalemia episode, replaced. Review of Systems (ROS): Constitutional: Positive for fatigue; denies fever or chills GI: Positive for nausea, vomiting, and diarrhea : Positive for flank pain and dysuria; denies hematuria Cardiovascular: Denies chest pain or palpitations Respiratory: Denies shortness of breath or cough Neuro: Denies headache, dizziness, or syncope Skin: No rashes or lesions noted Patient reports: No new complaints Changes from previous H/P or p: No Changes Objective vital signs Vital Sign Date Time Temp Pulse Resp B/P (MAP) Pulse Ox O2 Delivery O2 Flow Rate FiO2 07/02/24 12:22 65 17 111/65 07/02/24 11:49 98.1 95 98.1 07/02/24 11:49 Room Air* 0 21 Total Intake and Output 07/01/24 07/01/24 07/02/24 15:00 23:00 07:00 Intake Total 1100 ml Balance 1100 ml medications Current Medications Medications Dose Ordered Sig/Carla Route Start Time Stop Time Status Last Admin Dose Admin Ceftriaxone Sodium 50 ml @ 100 mls/hr DAILY@09 IV 07/03/24 09:00 Sodium Chloride 10 ml Q8HR IV 07/02/24 06:00 07/02/24 14:28 10 ML Acetaminophen/ Hydrocodone Bitart 1 tab Q4HP PRN PO 07/02/24 04:45 Ondansetron HCl 4 mg Q4HP PRN IV 07/02/24 04:45 07/02/24 05:45 4 MG Docusate Sodium 100 mg BIDPRN PRN PO 07/02/24 04:45 Acetaminophen 650 mg Q6HP PRN PO 07/02/24 04:45 Morphine Sulfate 2 mg Q4HPRN PRN IV 07/02/24 04:45 07/02/24 12:22 2 MG Nitroglycerin 0.4 mg Q5MINP PRN SL 07/02/24 06:00 Morphine Sulfate 2 mg Q30M PRN IV 07/02/24 06:00 Examination Physical Exam: General: Alert, oriented, appears uncomfortable due to pain Vitals: Stable; afebrile, normotensive, normal heart rate HEENT: Mucous membranes moist Cardiac: Regular rate and rhythm, no murmurs Lungs: Clear to auscultation bilaterally Abdomen: Soft, non-distended; mild left costovertebral angle (CVA) tenderness : No suprapubic tenderness; Farley not in place Extremities: No edema Neuro: Alert and oriented 3, no focal deficits Skin: Warm and dry laboratory and microbiology Laboratory Tests 07/02/24 04:52 Test 07/02/24 04:52 Range/Units Serum Glucose 115 H 74-106 mg/dL Problem List/Assessment/Plan Problem List/Assessment/Plan #sepsis due to UTI # left-sided nephrolithiasis with moderate hydronephrosis due to partially obstructing proximal ureteral calculus causing renal colic # Acute renal colic, confirmed on imaging -admit to med surge - ceftriaxone IV - urology consult - p.r.n. - IV fluids #Hypokalemia - Corrected with electrolyte replacement #Dehydration - Secondary to vomiting and poor oral intake #History of nephrolithiasis (right side) -resolved # overweight, BMI 29 -Lifestyle modification counseling and dietary habits counseling Case discussed with Dr. Elaine Goals of care discussed with the patient for 21 minutes Code status: Full code Plan discussed with: Patient My Orders My Orders Orders - GONZALO LOBATO Procedure Category Date Status Time Potassium LAB 07/02/24 Logged 12:09 Drug Screen LAB 07/02/24 Logged 11:27 Covid19 Antigen Анна LAB 07/02/24 Logged Rapid Influenza A&B LAB 07/02/24 Logged 11:27 Date of Service: Jul 02, 2024 Billing Provider: NYDIA ELAINE MD Common Visit Codes: [id number] INP/OBS CARE(HIGH) GONZALO LOBATO Jul 02, 2024 14:42 NYDIA ELAINE MD Jul 03, 2024 10:25
[2024-07-02 15:47] LABS: COVID19 ANTIGEN SOFIA FIA NEGATIVE (NEGATIVE); Rapid Influenza A Negative (Negative); Rapid Influenza B Negative (Negative)
[2024-07-03] VITALS (7 sets, daily range): BP systolic 104–118; BP diastolic 60–72; PULSE 88–103; RESP 17–19; TEMP 98.3–99; O2SAT 96–99
[2024-07-03 05:42] LABS: Basophils # (auto) 0 10 ^3/uL (0-0.2); Basophils % (auto) 0.1 % (0.0-2.0); Eosinophils # (auto) 0 10 ^3/uL (0-0.8); Eosinophils % (auto) 0.3 % (0.0-7.0); Hematocrit 32.3 % (36.0-46.0); Hemoglobin 11.5 g/dL (12.2-16.2); Lymphocytes # (auto) 1.3 10 ^3/uL (0.4-5.4); Lymphocytes % (auto) 14.5 % (10.0-50.0); Mean Corpuscular Hemoglobin 31.5 pg (28.0-32.0); Mean Corpuscular Hgb Conc. 35.5 g/dL (32.0-36.0); Mean Corpuscular Volume 88.7 fL (80.0-100.0); Monocytes # (auto) 0.6 10 ^3/uL (0-1.3); Monocytes % (auto) 6.7 % (0.0-12.0); Neutrophils # (auto) 6.8 10 ^3/uL (1.6-8.6); Neutrophils % (auto) 78.4 % (37.0-80.0); Platelet Count (auto) 209 10^3/uL (140-450); Red Blood Cells 3.64 10^6/uL (4.0-5.20); Red Cell Distribution Width 12.8 % (11.8-14.3); White Blood Cell 8.7 10^3/uL (4.4-10.8)
[2024-07-03 06:01] LABS: Alanine Aminotransferase 20 U/L (7-40); Albumin 3.5 g/dL (3.2-4.8); Alkaline Phosphatase 59 U/L (46-116); Anion Gap 10 (5-15); Aspartate Aminotransferase 17 U/L (13-40); BUN/Creatinine Ratio 6.7 (10.0-20.0); Bilirubin, Total 1.2 mg/dL (0.2-1.0); Carbon Dioxide 25 mmol/L (20-31); Chloride 104 mmol/L (98-107); Glucose 101 mg/dL (74-106); Sodium 139 mmol/L (136-145)
[2024-07-03 06:06] LABS: Blood Urea Nitrogen 7 mg/dL (9-23); Calcium 8.5 mg/dL (8.7-10.4); Potassium 3.3 mmol/L (3.5-5.1); Total Protein 5.3 g/dL (5.7-8.2)
[2024-07-03] MEDS: cefTRIAXone 1GM/50ML D5W 50 ML IV SCH (08:53)
[2024-07-03] MEDS: POTASSIUM EFFERVESENT TAB 25 MEQ PO ONE (12:01)
--- NOTE | 2024-07-03 12:30 | DVHINCON2 ---
Date of service: Jul 03, 2024 Referring Physician Hospitalist Reason for Consultation Hydronephrosis History of Present Illness Patient has a 3 mm proximal left ureteral calculus and a nonobstructive 3 mm right renal calculus. 39-year-old female with past medical history of kidney stone presented to [facility] ED with complaint of left flank pain. Patient reports symptoms progressively get worse with cramping bilateral flank pain, left greater than right, sharp in nature, aching, associated nausea, vomiting, diarrhea, dysuria, rating 8/10 numeric scale, getting worse that prompted this visit. Patient was seen and evaluated in the ED, laboratory data shows WBC 7.4, platelets 323, sodium 141, potassium 2.7, BUN 8, creatinine 0.81, GFR 95, glucose 119, urinalysis positive for urinary tract infection. Abdomen/pelvis CT revealing moderate left hydronephrosis secondary to a proximal partially obstructing intraureteral calculus. Patient was given morphine sulfate 4 mg IV x1, please see medication orders section in the computer. On my assessment, patient denied chest pain, no headache, no dizziness, no shortness of breaths, no nausea, no vomiting at this moment, no fever, no chills. Patient was admitted for further evaluation and medical management. Past Medical History Kidney Stones Past Surgical History Denies all surgeries Family History: Cardiovascular disease G8 FATHER FH: cirrhosis G8 MOTHER Allergies: Coded Allergies: No Known Drug Allergy (Verified Allergy, Unknown, 07/03/24) Home Meds Active Scripts Ondansetron Odt 4MG Tab (ZOFRAN PO) 4 Mg Tb, 4 MG PO Q8HP PRN for 5 Days, #15 TAB ODT TAB-DISSOLVE IN MOUTH, THEN SWALLOW Prov:DAX GARCIA MD 10/13/23 Pantoprazole Sodium Sesquihydr (Protonix) 40 Mg Tab, 40 MG PO DAILY, #30 TAB Prov:DAX GARCIA MD 10/13/23 Metronidazole (Flagyl) 500 Mg Tab, 1 TAB PO BID, #14 TAB Prov:DAX GARCIA MD 09/23/23 Pantoprazole Sodium Sesquihydr (Protonix) 40 Mg Tab, 40 MG PO DAILY, #30 TAB Prov:DAX GARCIA MD 09/23/23 Ondansetron Odt 4MG Tab (ZOFRAN PO) 4 Mg Tb, 4 MG PO Q8HP PRN for 7 Days, #21 TAB ODT TAB-DISSOLVE IN MOUTH, THEN SWALLOW Prov:DAX GARCIA MD 09/23/23 Cephalexin (KEFLEX CAPSULE) 250 Mg Cp, 1 CAP PO QID for 3 Days, #12 CAP Prov:CARMINA VELEZNOMARGOTH [facility] 09/16/23 Ondansetron Odt 4MG Tab (ZOFRAN PO) 4 Mg Tb, 4 MG PO Q6HP PRN for 5 Days, #20 TAB ODT TAB-DISSOLVE IN MOUTH, THEN SWALLOW Prov:MARGOTH ARGUELLES [facility] 09/16/23 Pantoprazole Sodium Sesquihydr (Pantoprazole Sodium) 40 Mg Tab, 40 MG PO DAILY@0600 for 30 Days, #30 TAB Prov:MARGOTH ARGUELLES [facility] 09/16/23 Ergocalciferol (VITAMIN D 42420 UNIT) 50,000 [place], [address] UNIT PO Q7D for 90 Days, #16 CAP Prov:MARGOTH ARGUELLES [facility] 09/16/23 Acetaminophen (Acetaminophen) 500 Mg Tab, 500 MG PO QIDP, #30 TAB 0 Refills Prov:JANUSZ DE LOS SANTOS 07/13/22 Sulfamethoxazole W/Trimethopri (Trimethoprim/Sulfamethoxa) 1 Tab Tab, 1 TAB PO BID for 7 Days, #14 TAB 0 Refills Prov:JANUSZ DE LOS SANTOS 07/13/22 Current Medications Current Medications Medications (Trade) Dose Ordered Sig/Carla Route PRN Reason Start Time Stop Time Status Last Admin Ceftriaxone Sodium 50 ml @ 100 mls/hr DAILY@09 IV 07/03/24 09:00 07/03/24 08:53 Review of Systems Constitutional: No: Fever, Chills, Sweats, Weakness, Malaise, Other Eyes: No: Pain, Vision change, Conjunctivae inflammation, Eyelid inflammation, Other, Redness ENT: No: Ear pain, Ear discharge, Nose pain, Nose discharge, Nose congestion, Mouth pain, Mouth swelling, Throat pain, Throat swelling, Other Respiratory: No: Cough, Dry, Shortness of breath, SOB with excertion, Wheezing, Hemoptysis, Pleuritic Pain, Sputum, Wheezing, Other Cardiovascular: No: Chest Pain, Palpitations, Orthopnea, Paroxysmal Noc. Dyspnea, Edema, Lt Headedness, Other Gastrointestinal: Nausea, Vomiting, Diarrhea; No: Abdominal Pain, Constipation, Melena, Hematochezia, Other Genitourinary: Dysuria; No Frequency, No Incontinence, No Hematuria, No Retention; Other (Flank pain, burning.) Musculoskeletal: No: other, neck pain, shoulder pain, arm pain, back pain, hand pain, leg pain, foot pain Skin: No: Rash, Lesions, Jaundice, Bruising, Other Neurological: No: Weakness, Numbness, Incoordination, Change in speech, Confusion, Seizures, Other Allergies: Coded Allergies: No Known Drug Allergy (Verified Allergy, Unknown, 07/02/24) Medications Current Medications Medications Dose Ordered Sig/Carla Route Start Time Stop Time Status Last Admin Dose Admin Ceftriaxone Sodium 50 ml @ 100 mls/hr DAILY@09 IV 07/03/24 09:00 Sodium Chloride 10 ml Q8HR IV 07/02/24 06:00 07/02/24 05:48 10 ML Acetaminophen/ Hydrocodone Bitart 1 tab Q4HP PRN PO 07/02/24 04:45 Ondansetron HCl 4 mg Q4HP PRN IV 07/02/24 04:45 07/02/24 05:45 4 MG Docusate Sodium 100 mg BIDPRN PRN PO 07/02/24 04:45 Acetaminophen 650 mg Q6HP PRN PO 07/02/24 04:45 Morphine Sulfate 2 mg Q4HPRN PRN IV 07/02/24 04:45 07/02/24 05:48 2 MG Potassium Chloride 50 ml @ 25 mls/hr Q2H IV 07/02/24 05:15 07/02/24 09:14 07/02/24 05:13 25 MLS/HR Vital Signs Vital Signs Date Time Temp Pulse Resp B/P (MAP) Pulse Ox O2 Delivery O2 Flow Rate FiO2 07/03/24 09:34 70 17 110/69 07/03/24 09:00 98.3 97 98.3 07/02/24 20:00 Room Air* 0 21 Physical Exam Vital Signs Date Time Temp Pulse Resp B/P (MAP) Pulse Ox O2 Delivery O2 Flow Rate FiO2 07/02/24 05:48 86 22 101/60 07/02/24 04:22 98 Room Air* 0 21 07/02/24 02:44 98.2 General Appearance: Alert, Oriented X3, Cooperative, No acute distress HEENT: Atraumatic, PERRLA, EOMI, Mucous membr. moist/pink Respiratory: Clear to auscultation, Normal air movement Cardiovascular: Regular rate, Normal S1, Normal S2, No murmurs Abdominal: Normal bowel sounds, Soft, No hepatospenomegaly, No masses, Other (Flank pain) Extremities: No clubbing, No cyanosis, No edema, Normal pulses, No tenderness/swelling Skin: No rashes, No breakdown, No significant lesion Neuro: Normal gait, Normal speech, Strength at 5/5 X4 ext, Normal tone, Sensation intact, Cranial nerves 3-12 NL, Reflexes 2+ Psych/Mental Status: Mental status NL, Mood NL Labs/Diagnostic Data Labs Test 07/03/24 04:51 07/02/24 15:06 07/02/24 01:48 Range/Units White Blood Count 8.7 # 4.4-10.8 10^3/uL Red Blood Count 3.64 L 4.0-5.20 10^6/uL Hemoglobin 11.5 L 12.2-16.2 g/dL Hematocrit 32.3 L 36.0-46.0 % Mean Corpuscular Volume 88.7 80.0-100.0 fL Mean Corpuscular Hemoglobin 31.5 28.0-32.0 pg Mean Corpuscular Hemoglobin Concent 35.5 32.0-36.0 g/dL Red Cell Distribution Width 12.8 11.8-14.3 % Platelet Count 209 140-450 10^3/uL Mean Platelet Volume 7.5 6.9-10.8 fL Neutrophils (%) (Auto) 78.4 37.0-80.0 % Lymphocytes (%) (Auto) 14.5 10.0-50.0 % Monocytes (%) (Auto) 6.7 0.0-12.0 % Eosinophils (%) (Auto) 0.3 0.0-7.0 % Basophils (%) (Auto) 0.1 0.0-2.0 % Neutrophils # (Auto) 6.8 1.6-8.6 10 ^3/uL Lymphocytes # (Auto) 1.3 0.4-5.4 10 ^3/uL Monocytes # (Auto) 0.6 0-1.3 10 ^3/uL Eosinophils # (Auto) 0 0-0.8 10 ^3/uL Basophils # (Auto) 0 0-0.2 10 ^3/uL Nucleated Red Blood Cells 0.0 % Sodium Level 139 136-145 mmol/L Potassium Level 3.3 L 3.5-5.1 mmol/L Chloride Level 104 98-107 mmol/L Carbon Dioxide Level 25 20-31 mmol/L Anion Gap 10 5-15 Blood Urea Nitrogen 7 L 9-23 mg/dL Creatinine 1.04 H 0.550-1.02 mg/dL Glomerular Filtration Rate Calc 70 >90 mL/min BUN/Creatinine Ratio 6.7 L 10.0-20.0 Serum Glucose 101 74-106 mg/dL Calcium Level 8.5 L 8.7-10.4 mg/dL Total Bilirubin 1.2 H 0.2-1.0 mg/dL Aspartate Amino Transferase (AST) 17 13-40 U/L Alanine Aminotransferase (ALT) 20 7-40 U/L Alkaline Phosphatase 59 46-116 U/L Total Protein 5.3 L 5.7-8.2 g/dL Albumin 3.5 3.2-4.8 g/dL Influenza Type A Antigen Negative Negative Influenza Type B Antigen Negative Negative SARS-CoV-2 Antigen (Rapid) Negative NEGATIVE Urine Color Light-orange Yellow Urine Clarity Turbid H Clear Urine pH 6.5 5.0-9.0 Urine Specific [place] 1.028 1.001-1.035 Urine Protein 1+ H Negative Urine Ketones Trace Negative Urine Blood 3+ H Negative /uL Urine Nitrite Negative Negative Urine Bilirubin Negative Negative Urine Urobilinogen 2 H Negative mg/dL Urine Leukocyte Esterase 2+ Negative /uL Urine RBC 2090 0 - 4 /hpf Urine Microscopic WBC 33 H 0-5 /HPF Urine Squamous Epithelial Cells Mod <5 /hpf Urine Bacteria None seen None Seen /hpf Urine Mucus Few None Seen Urine Glucose Normal Normal mg/dL Urine Test Negative Negative Microbiology Date/Time Source Procedure Growth Status 07/02/24 01:48 Voided Urine Urine Culture - Preliminary Resulted PATIENT: ESTEFANI CORTEZ ACCT: [id number] UNIT: [id number] : 1985 LOC: [facility] ROOM / BED: [address] [place] [address] B AGE / SEX: 39 / F ADM STATUS: ADM IN SERVICE 0233 ORDERING PHYSICIAN: GRODON ADAMS MD PROCEDURE(s): ABPL - CT AB PEL WO CON-NO ORAL OR IV REASON: Flank pain ORDER NUMBER(s): [id number], ACCESSION NUMBER(s): [id number] Exam: CT CT AB PEL WO CON-NO ORAL OR IV History: Flank pain Comparison Study: None available at time of dictation. Technique: Multidetector spiral CT of the abdomen was performed from lung bases to iliac crest. Imaging was performed without IV contrast. Axial, coronal and sagittal multiplanar reformats were obtained from the axial data set by the technologist. Radiation Dose : CT Dose: CTDI volume is 11.24 mGy. Dose-length product is 654.08 mGy*cm Findings: Evaluation of solid organs is limited due to lack of intravenous contrast use. Lung Bases: No acute or significant lung base finding. Normal heart size. No pleural or pericardial effusion. Liver: The liver is normal in size. No focal lesions. Gallbladder and Biliary Tree: Unremarkable Spleen: Unremarkable Pancreas: The pancreas is grossly normal in appearance. Adrenal Glands: Unremarkable Kidneys: Moderate left hydronephrosis and dilatation of the proximal ureter secondary to a partially obstructing proximal 0.3 cm intraureteral calcification. The right kidney is grossly normal without calculi or hydronephrosis. Visualized Bowel: The stomach is grossly normal in appearance. Small bowel and colon are normal in caliber and distribution. The appendix is normal in a ppearance. Ascites: Absent Lymphadenopathy: No mesenteric, retroperitoneal or periportal lymphadenopathy. Abdominal Wall and Mesentery: Unremarkable. Vasculature: The visualized abdominal aorta is normal in size and caliber. Evaluation of abdominal and pelvic vessels is limited due to lack of intravenous contrast. Musculoskeletal: No aggressive focal bony lesions, acute fractures or dislocation. Moderate to severe disc height loss at the L5-S1 level with corresponding endplate sclerosis and anterior osteophytosis. IMPRESSION: 1. Moderate left hydronephrosis secondary to a proximal partially obstructing intraureteral calculus. Radiation optimization: All CT scans at this facility use at least one of these dose optimization techniques: automated exposure control mA and/or kV adjustment per patient size (includes targeted exams where dose is matched to clinical indication) or iterative reconstruction. ATED BY: STEVEN ROGERS MD DICTATED DATE/TIME: 07/02/24301 SIGNED BY: STEVEN ROGERS MD SIGNED DATE/TIME: 07/02/24301 CC: Assessment 3 mm left proximal ureteral calculus 3 mm right nephrolithiasis Plan/Recommendation Expulsive measures Pain control Plan discussed with: Patient, Other JULIA CACERES MD Jul 03, 2024 12:29
[2024-07-03] MEDS: MANNITOL FTV 25% 12.5 GM/50 ML 50 ML IV ONE (13:48)
[2024-07-03] MEDS: TAMSULOSIN HYDROCHLORIDE 0.4 MG CAP PO ONE (17:52)
[2024-07-03] MEDS: KETOROLAC TROMETH 30 MG/ML 1ML VIAL IV ONE (18:17)
--- NOTE | 2024-07-03 18:34 | DVHPNRES ---
Progress Note Date Seen: Jul 03, 2024 Resident Creating Document: GONZALO LOBATO RESIDENT Has the PT tested + for MRSA If YES, has PT been informed?: No Medical Necessity Reason Pt with a Central, PICC or Fol: No Subjective Review of Systems Lulu Fregoso is a 39-year-old female with a known history of right-sided nephrolithiasis, who presented to the emergency department with a chief complaint of worsening left flank pain. She reports that the pain began gradually but intensified over time, becoming sharp, cramping, and aching in nature. The pain is worse on the left but has also been present on the right side intermittently. Pain is rated as severe, non-radiating, and associated with nausea, vomiting, and diarrhea. On evaluation, urinalysis was positive for urinary tract infection, and a CT abdomen/pelvis revealed moderate left-sided hydronephrosis secondary to a partially obstructing proximal ureteral calculus, consistent with renal colic and obstructive uropathy. The patient was treated with IV morphine for pain control, and IV fluids for hydration and electrolyte correction. Patient was started on tamsulosin 0.4 mg daily and continue on morphine for pain control q.4 hours. Patient reports: Feels better Changes from previous H/P or p: Changes Review of Systems: HEENT:Normal, CVS:Normal, RESPIRATORY:Normal, GI:Normal, :Normal, MSK:Normal, NEURO:Normal Objective vital signs Vital Sign Date Time Temp Pulse Resp B/P (MAP) Pulse Ox O2 Delivery O2 Flow Rate FiO2 07/03/24 17:00 98.4 97 18 112/72 (85) 99 98.4 07/03/24 08:00 Room Air* 0 21 Total Intake and Output 07/02/24 07/02/24 07/03/24 15:00 23:00 07:00 Intake Total 118 ml 100 ml 500 ml Balance 118 ml 100 ml 500 ml medications Current Medications Medications Dose Ordered Sig/Carla Route Start Time Stop Time Status Last Admin Dose Admin Ceftriaxone Sodium 50 ml @ 100 mls/hr DAILY@09 IV 07/03/24 09:00 07/03/24 08:53 100 MLS/HR Sodium Chloride 10 ml Q8HR IV 07/02/24 06:00 07/03/24 14:25 10 ML Acetaminophen/ Hydrocodone Bitart 1 tab Q4HP PRN PO 07/02/24 04:45 Ondansetron HCl 4 mg Q4HP PRN IV 07/02/24 04:45 07/03/24 09:04 4 MG Docusate Sodium 100 mg BIDPRN PRN PO 07/02/24 04:45 Acetaminophen 650 mg Q6HP PRN PO 07/02/24 04:45 Nitroglycerin 0.4 mg Q5MINP PRN SL 07/02/24 06:00 Morphine Sulfate 2 mg Q30M PRN IV 07/02/24 06:00 Tamsulosin HCl 0.4 mg QPM PO 07/04/24 18:00 Morphine Sulfate 3 mg Q6HP PRN IV 07/03/24 18:00 Examination: GENERAL:Normal, HEENT:Normal, NECK:Normal, LUNGS:Normal, CVS:Normal, ABDOMEN:Normal, MSK:Normal, SKIN:Normal, NEURO:Normal, :Normal laboratory and microbiology Laboratory Tests 07/03/24 04:51 Test 07/03/24 04:51 Range/Units Serum Glucose 101 74-106 mg/dL Microbiology Date/Time Source Procedure Growth Status 07/02/24 01:48 Voided Urine Urine Culture - Preliminary Resulted Problem List/Assessment/Plan Problem List/Assessment/Plan #sepsis due to UTI # left-sided nephrolithiasis with moderate hydronephrosis due to partially obstructing proximal ureteral calculus causing renal colic # Acute renal colic, confirmed on imaging -admit to med surge - ceftriaxone IV - urology consult - p.r.n. - IV fluids - tamsulosin 0 4 mg p.o. daily #Hypokalemia - Corrected with electrolyte replacement #Dehydration - Secondary to vomiting and poor oral intake #History of nephrolithiasis (right side) -resolved # overweight, BMI 29 -Lifestyle modification counseling and dietary habits counseling Case discussed with Dr. Prakash Goals of care discussed with the patient for 21 minutes Code status: Full code Plan discussed with: Patient My Orders My Orders Orders - GONZALO LOBATO Procedure Category Date Status Time Tamsulosin PHA 07/04/24 In Process Hydrochloride (Flomax) 18:00 Date of Service: Jul 03, 2024 Billing Provider: NYDIA PRAKASH MD Common Visit Codes: [id number] INP/OBS CARE(MOD) GONZALO LOBATO RESIDENT Jul 03, 2024 18:34 NYDIA PRAKASH MD Jul 04, 2024 14:48
[2024-07-03] MEDS: MORPHINE SULFATE 4 MG/ML SYR/VIAL IV PRN (21:56)
[2024-07-04 01:00] VITALS: BP 109/64; PULSE 91; RESP 19; TEMP 98.3; O2SAT 98
[2024-07-04] MEDS: HYDROcodone-ACET 5/325MG TAB PO PRN (02:25)
[2024-07-04 05:00] VITALS: BP 101/53; PULSE 91; RESP 19; TEMP 97.9; O2SAT 98
[2024-07-04 06:57] LABS: Anion Gap 7 (5-15); Carbon Dioxide 27 mmol/L (20-31); Chloride 104 mmol/L (98-107); Sodium 138 mmol/L (136-145)
[2024-07-04 06:58] LABS: Calcium 8.7 mg/dL (8.7-10.4)
[2024-07-04 07:00] LABS: Potassium 3.3 mmol/L (3.5-5.1)
[2024-07-04 07:02] LABS: Basophils # (auto) 0 10 ^3/uL (0-0.2); Basophils % (auto) 0.1 % (0.0-2.0); Eosinophils # (auto) 0.1 10 ^3/uL (0-0.8); Eosinophils % (auto) 1.1 % (0.0-7.0); Hematocrit 32.5 % (36.0-46.0); Hemoglobin 11.4 g/dL (12.2-16.2); Lymphocytes # (auto) 1.4 10 ^3/uL (0.4-5.4); Mean Corpuscular Hemoglobin 31.3 pg (28.0-32.0); Mean Corpuscular Hgb Conc. 34.9 g/dL (32.0-36.0); Mean Corpuscular Volume 89.6 fL (80.0-100.0); Monocytes # (auto) 0.5 10 ^3/uL (0-1.3); Monocytes % (auto) 8.1 % (0.0-12.0); Neutrophils # (auto) 4.3 10 ^3/uL (1.6-8.6); Neutrophils % (auto) 68.7 % (37.0-80.0); Platelet Count (auto) 205 10^3/uL (140-450); Red Blood Cells 3.63 10^6/uL (4.0-5.20); Red Cell Distribution Width 12.9 % (11.8-14.3); White Blood Cell 6.3 10^3/uL (4.4-10.8)
[2024-07-04 07:03] LABS: BUN/Creatinine Ratio 9.1 (10.0-20.0); Blood Urea Nitrogen 9 mg/dL (9-23); Glucose 102 mg/dL (74-106)
[2024-07-04 08:00] VITALS: PULSE 72; PULSE 87; RESP 19; O2SAT 95
[2024-07-04 09:00] VITALS: BP 111/48; PULSE 88; RESP 16; TEMP 97.9; O2SAT 97
[2024-07-04 13:00] VITALS: BP 115/65; PULSE 99; RESP 19; TEMP 97.7; O2SAT 99
--- NOTE | 2024-07-04 14:02 | DVHPN2 ---
Progress Note - Dictate Date Seen: Jul 04, 2024 Has the PT tested + for MRSA If YES, has PT been informed?: No Medical Necessity Reason Pt with a Central, PICC or Fol: No Medical Necessity Reason URolithiasis Subjective Pain is controlled. Has not passed the stone yet. vital signs Vital Sign Date Time Temp Pulse Resp B/P (MAP) Pulse Ox O2 Delivery O2 Flow Rate FiO2 07/04/24 09:00 97.9 88 16 111/48 (69) 97 97.9 07/04/24 08:00 Room Air* 0 21 Total Intake and Output 07/03/24 07/03/24 07/04/24 15:00 23:00 07:00 Intake Total 50 ml 450 ml 1100 ml Balance 50 ml 450 ml 1100 ml medications Current Medications Medications Dose Ordered Sig/Carla Route Start Time Stop Time Status Last Admin Dose Admin Ceftriaxone Sodium 50 ml @ 100 mls/hr DAILY@09 IV 07/03/24 09:00 07/04/24 09:04 100 MLS/HR Sodium Chloride 10 ml Q8HR IV 07/02/24 06:00 07/04/24 13:46 10 ML Acetaminophen/ Hydrocodone Bitart 1 tab Q4HP PRN PO 07/02/24 04:45 07/04/24 13:33 1 TAB Ondansetron HCl 4 mg Q4HP PRN IV 07/02/24 04:45 07/04/24 13:33 4 MG Docusate Sodium 100 mg BIDPRN PRN PO 07/02/24 04:45 Acetaminophen 650 mg Q6HP PRN PO 07/02/24 04:45 Nitroglycerin 0.4 mg Q5MINP PRN SL 07/02/24 06:00 Morphine Sulfate 2 mg Q30M PRN IV 07/02/24 06:00 Tamsulosin HCl 0.4 mg QPM PO 07/04/24 18:00 Morphine Sulfate 3 mg Q6HP PRN IV 07/03/24 18:00 07/04/24 06:09 3 MG laboratory and microbiology Laboratory Tests 07/04/24 06:15 Test 07/04/24 06:15 Range/Units Serum Glucose 102 74-106 mg/dL Assessment/Plan 3 mm left proximal ureteral calculus 3 mm right nephrolithiasis Will arrange for outpatient follow up and management with [facility] Plan discussed with: Patient, Other JULIA CACERES MD 25, 2025 14:02
[2024-07-04] MEDS ORDERED: TAMS-35 PO ×2 (16:56→16:57)
[2024-07-04] MEDS ORDERED: CEPH250C PO ×2 (16:56)
[2024-07-04] MEDS ORDERED: ACET-1079 PO (16:56)
--- NOTE | 2024-07-04 17:54 | DVHDSRES ---
Discharge Summary Date of Admission Resident Creating Document: GONZALO LOBATO RESIDENT Jul 02, 2024 at 05:54 Date of Discharge: Jul 04, 2024 Admitting Diagnosis LEFT FLANK PAIN Labs/Diagnostic Data: Laboratory Results Test 07/04/24 06:15 07/03/24 04:51 07/02/24 15:06 07/02/24 01:48 White Blood Count 6.3 10^3/uL (4.4-10.8) Red Blood Count 3.63 10^6/uL (4.0-5.20) Hemoglobin 11.4 g/dL (12.2-16.2) Hematocrit 32.5 % (36.0-46.0) Mean Corpuscular Volume 89.6 fL (80.0-100.0) Mean Corpuscular Hemoglobin 31.3 pg (28.0-32.0) Mean Corpuscular Hemoglobin Concent 34.9 g/dL (32.0-36.0) Red Cell Distribution Width 12.9 % (11.8-14.3) Platelet Count 205 10^3/uL (140-450) Mean Platelet Volume 7.4 fL (6.9-10.8) Neutrophils (%) (Auto) 68.7 % (37.0-80.0) Lymphocytes (%) (Auto) 22.0 % (10.0-50.0) Monocytes (%) (Auto) 8.1 % (0.0-12.0) Eosinophils (%) (Auto) 1.1 % (0.0-7.0) Basophils (%) (Auto) 0.1 % (0.0-2.0) Neutrophils # (Auto) 4.3 10 ^3/uL (1.6-8.6) Lymphocytes # (Auto) 1.4 10 ^3/uL (0.4-5.4) Monocytes # (Auto) 0.5 10 ^3/uL (0-1.3) Eosinophils # (Auto) 0.1 10 ^3/uL (0-0.8) Basophils # (Auto) 0 10 ^3/uL (0-0.2) Nucleated Red Blood Cells 0.0 % Sodium Level 138 mmol/L (136-145) Potassium Level 3.3 mmol/L (3.5-5.1) Chloride Level 104 mmol/L (98-107) Carbon Dioxide Level 27 mmol/L (20-31) Anion Gap 7 (5-15) Blood Urea Nitrogen 9 mg/dL (9-23) Creatinine 0.99 mg/dL (0.550-1.02) Glomerular Filtration Rate Calc 74 mL/min (>90) BUN/Creatinine Ratio 9.1 (10.0-20.0) Serum Glucose 102 mg/dL (74-106) Calcium Level 8.7 mg/dL (8.7-10.4) Total Bilirubin 1.2 mg/dL (0.2-1.0) Aspartate Amino Transferase (AST) 17 U/L (13-40) Alanine Aminotransferase (ALT) 20 U/L (7-40) Alkaline Phosphatase 59 U/L (46-116) Total Protein 5.3 g/dL (5.7-8.2) Albumin 3.5 g/dL (3.2-4.8) Influenza Type A Antigen Negative (Negative) Influenza Type B Antigen Negative (Negative) SARS-CoV-2 Antigen (Rapid) Negative (NEGATIVE) Urine Color Light-orange (Yellow) Urine Clarity Turbid (Clear) Urine pH 6.5 (5.0-9.0) Urine Specific Kelly 1.028 (1.001-1.035) Urine Protein 1+ (Negative) Urine Ketones Trace (Negative) Urine Blood 3+ /uL (Negative) Urine Nitrite Negative (Negative) Urine Bilirubin Negative (Negative) Urine Urobilinogen 2 mg/dL (Negative) Urine Leukocyte Esterase 2+ /uL (Negative) Urine RBC 2090 /hpf (0 - 4) Urine Microscopic WBC 33 /HPF (0-5) Urine Squamous Epithelial Cells Mod /hpf (<5) Urine Bacteria None seen /hpf (None Seen) Urine Mucus Few (None Seen) Urine Glucose Normal mg/dL (Normal) Urine Test Negative (Negative) Other Laboratory Tests 07/04/24 06:15 Brief Hx & Hospital Course: HPI: 39-year-old female patient with known history of right-sided nephrolithiasis who presented to the emergency department with worsening left flank pain. The pain began gradually and progressed to sharp, cramping, aching pain worse on the left PAD intermittently present on the right. She also reported nausea vomiting and diarrhea. Hospital course Patient rated the pain as severe and nonradiating. Evaluation include CT scan of the abdomen and pelvis which showed moderate left-sided hydronephrosis secondary to a partially obstructing proximal ureteral stone, consistent with renal colic and obstructive uropathy. Urinalysis was positive for UTI confirming superimposed infection. Patient was seen by Urology and treated with morphine fluids and tamsulosin 0.4 mg daily and symptoms improved with therapeutic patient reported feeling better at time of discharge sliding Disposition: Discharged to home Operations or Procedures [place] [address] Ph: [phone] DIAGNOSTIC IMAGING Diagnostic Imaging Report : [id number] Signed PATIENT: ESTEFANI CORTEZ ACCT: [id number] UNIT: [id number] : 1985 LOC: [facility] ROOM / BED: [facility] / B AGE / SEX: 39 / F ADM STATUS: ADM IN SERVICE 0233 ORDERING PHYSICIAN: GORDON ADAMS MD PROCEDURE(s): ABPL - CT AB PEL WO CON-NO ORAL OR IV REASON: Flank pain ORDER NUMBER(s): [id number], ACCESSION NUMBER(s): [id number] Exam: CT CT AB PEL WO CON-NO ORAL OR IV History: Flank pain Comparison Study: None available at time of dictation. Technique: Multidetector spiral CT of the abdomen was performed from lung bases to iliac crest. Imaging was performed without IV contrast. Axial, coronal and sagittal multiplanar reformats were obtained from the axial data set by the technologist. Radiation Dose : CT Dose: CTDI volume is 11.24 mGy. Dose-length product is 654.08 mGy*cm Findings: Evaluation of solid organs is limited due to lack of intravenous contrast use. Lung Bases: No acute or significant lung base finding. Normal heart size. No pleural or pericardial effusion. Liver: The liver is normal in size. No focal lesions. Gallbladder and Biliary Tree: Unremarkable Spleen: Unremarkable Pancreas: The pancreas is grossly normal in appearance. Adrenal Glands: Unremarkable Kidneys: Moderate left hydronephrosis and dilatation of the proximal ureter secondary to a partially obstructing proximal 0.3 cm intraureteral calcification. The right kidney is grossly normal without calculi or hydronephrosis. Visualized Bowel: The stomach is grossly normal in appearance. Small bowel and colon are normal in caliber and distribution. The appendix is normal in appearance. Ascites: Absent Lymphadenopathy: No mesenteric, retroperitoneal or periportal lymphadenopathy. Abdominal Wall and Mesentery: Unremarkable. Vasculature: The visualized abdominal aorta is normal in size and caliber. Evaluation of abdominal and pelvic vessels is limited due to lack of intravenous contrast. Musculoskeletal: No aggressive focal bony lesions, acute fractures or dislocation. Moderate to severe disc height loss at the L5-S1 level with corresponding endplate sclerosis and anterior osteophytosis. IMPRESSION: 1. Moderate left hydronephrosis secondary to a proximal partially obstructing intraureteral calculus. Radiation optimization: All CT scans at this facility use at least one of these dose optimization techniques: automated exposure control mA and/or kV adjustment per patient size (includes targeted exams where dose is matched to clinical indication) or iterative reconstruction. ATED BY: STEVEN ROGERS MD DICTATED DATE/TIME: 07/02/24301 SIGNED BY: STEVEN ROGERS MD SIGNED DATE/TIME: 07/02/24301 CC: Condition at Discharge: Fair Final Diagnosis/Problems List #sepsis due to UTI # left-sided nephrolithiasis with moderate hydronephrosis due to partially obstructing proximal ureteral calculus causing renal colic # Acute renal colic, confirmed on imaging #Hypokalemia #Dehydration #History of nephrolithiasis (right side) # overweight, BMI 29 Discharge Disposition: Home SNF Discharge Will this Physician continue t: No Discharge Instruct/Medications Diet: Renal Activity: No Restrictions, As Tolerated Follow Up/Referral: follow up with pcp within 2 weeks dc clinic Medications: script to pharmacy Discharge Statement: "Patient was advised to return to the ER or call 911 if any headaches, dizziness, shortness of breath, chest pain, abdominal pain, bleeding, fevers, or worsening of medical condition. Patient was counseled about treatment plan, medications, possible side effects, patientverbalized understanding. All questions were answered to the best of my ability. This discharge took greater then 30 minutes in planning, reviewing documentation, counseling the patient, and discussing with other team members." ASSESSMENT ASSESSMENT Assessment left flank pain due to kidney stone GONZALO LOBATO RESIDENT Jul 04, 2024 17:54
[2024-07-04] MEDS ORDERED: TAMSULOSIN HYDROCHLORIDE 0.4 MG CAP PO SCH (18:00)
== END 2024-07-04 16:45 | disposition home or self-care (01) | DRG 422 ==
LOC: ER 00:48 → OVERFLOW 05:54 → MERGE 05:54 → OVERFLOW 05:55 → WEST WING 11:08 → TELE-WESTW 07-03 02:40
PROVIDERS: ADMIT Student in an Organized Health Care Education/Training Program; ATTEND Emergency Medicine
DX: E87.6 Hypokalemia (principal); E86.0 Dehydration; N13.6 Pyonephrosis; E66.3 Overweight; I73.9 Peripheral vascular disease, unspecified; Z20.822 Contact with and (suspected) exposure to COVID-19; Z87.442 Personal history of urinary calculi; Z82.49 Family history of ischemic heart disease and other diseases of the circulatory system; Z79.2 Long term (current) use of antibiotics; Z79.899 Other long term (current) drug therapy; Z79.1 Long term (current) use of non-steroidal anti-inflammatories (NSAID); Z68.29 Body mass index [BMI] 29.0-29.9, adult
CPT/HCPCS: 36415; 74176; 80048; 80053; 81001; 81025; 84132; 85025; 87086; 87426; 87804; 96361; 96374; 96375; 99291; G0378; J1885; J2405

== ENCOUNTER 2024-07-14 05:53 | Emergency (ER) | payer MEDICAID ==
[~2024-07-14] VITALS: Ht 157.5 cm; Wt 79.3 kg
[~2024-07-14 05:53] MED LIST changes: +ACET-1079 PO; +TAMS-35 PO
[2024-07-14 07:14] LABS: Urine Amorphous Crystal FEW /hpf (None Seen); Urine Bacteria FEW /hpf (None Seen); Urine Blood Negative /uL (Negative); Urine Color Light-Yellow (Yellow); Urine Mucus FEW (None Seen); Urine Protein, UAD TRACE (Negative); Urine Specific Gravity 1.023 (1.001-1.035); Urine Squamous Epithelial Cell MOD /hpf (<5); Urine Urobilinogen Normal (Negative); Urine WBC 1 /HPF (0-5); Urine pH 8.5 (5.0-9.0)
--- NOTE | 2024-07-14 07:23 | ED.PDOC ---
GI ASSESSMENT HPI Comments 39 year old female presents to the ED with chief complaint of abdominal pain. Patient reports that she has been experiencing diffuse abdominal pain with associated N/V/D, feeling very similar to symptoms she had when she was previously admitted on 07/02/24. Patient relays that she was diagnosed with kidney stones last visit. Patient states she is not sure if her symptoms may be due to cannabinoid hyperemesis syndrome, however, she has not smoked marijuana since her discharge 2 weeks ago. Patient denies any fever, chills, flank pain, dysuria, hematuria, or hematemesis. Chief Complaint: Abdominal Pain Time Seen by MD: 07:19 Primary Care Provider: GRABIEL Reviewed Notes: Nurses Notes, Medications, Allergies Allergies: Coded Allergies: No Known Drug Allergy (Verified Allergy, Unknown, 07/03/24) Home Meds Active Scripts Tamsulosin Hcl (Flomax) 0.4 Mg Cap, 0.4 MG PO QPM for 30 Days, #30 CAP Prov:GONZALO LOBATO RESIDENT 07/04/24 Acetaminophen (Tylenol) 325 Mg Tb, 325 MG PO TID PRN for 10 Days, #30 TAB Prov:GONZALO LOBATO RESIDENT 07/04/24 Cephalexin (KEFLEX CAPSULE) 250 Mg Cp, 500 MG PO BID for 10 Days, #20 CAP Prov:GONZALO LOBATO RESIDENT 07/04/24 Ondansetron Odt 4MG Tab (ZOFRAN PO) 4 Mg Tb, 4 MG PO Q8HP PRN for 5 Days, #15 TAB ODT TAB-DISSOLVE IN MOUTH, THEN SWALLOW Prov:DAX GARCIA MD 10/13/23 Pantoprazole Sodium Sesquihydr (Protonix) 40 Mg Tab, 40 MG PO DAILY, #30 TAB Prov:DAX GARCIA MD 10/13/23 Metronidazole (Flagyl) 500 Mg Tab, 1 TAB PO BID, #14 TAB Prov:DAX GARCIA MD 09/23/23 Pantoprazole Sodium Sesquihydr (Protonix) 40 Mg Tab, 40 MG PO DAILY, #30 TAB Prov:DAX GARCIA MD 09/23/23 Ondansetron Odt 4MG Tab (ZOFRAN PO) 4 Mg Tb, 4 MG PO Q8HP PRN for 7 Days, #21 TAB ODT TAB-DISSOLVE IN MOUTH, THEN SWALLOW Prov:DAX GARCIA MD 09/23/23 Cephalexin (KEFLEX CAPSULE) 250 Mg Cp, 1 CAP PO QID for 3 Days, #12 CAP Prov:CARMINA SHEIKHMARGOTH YOUNGER 09/16/23 Ondansetron Odt 4MG Tab (ZOFRAN PO) 4 Mg Tb, 4 MG PO Q6HP PRN for 5 Days, #20 TAB ODT TAB-DISSOLVE IN MOUTH, THEN SWALLOW Prov:CARMINA SHEIKHMARGOTH YOUNGER [facility] 09/16/23 Pantoprazole Sodium Sesquihydr (Pantoprazole Sodium) 40 Mg Tab, 40 MG PO DAVID LY@0600 for 30 Days, #30 TAB Prov:MARGOTH ARGUELLES [facility] 09/16/23 Ergocalciferol (VITAMIN D 06244 UNIT) 50,[address] [place], [address] UNIT PO Q7D for 90 Days, #16 CAP Prov:MARGOTH ARGUELLES [facility] 09/16/23 Acetaminophen (Acetaminophen) 500 Mg Tab, 500 MG PO QIDP, #30 TAB 0 Refills Prov:JANUSZ DE LOS SANTOS 07/13/22 Sulfamethoxazole W/Trimethopri (Trimethoprim/Sulfamethoxa) 1 Tab Tab, 1 TAB PO BID for 7 Days, #14 TAB 0 Refills Prov:JANUSZ DE LOS SANTOS 07/13/22 Information Source: Patient Mode of Arrival: Ambulatory Timing: Days Duration: Since onset Prehospital treatment: None Quality: Sharp Vomitus: Watery Stool: Watery Severity: Moderate Recent: None Recent Hx of: Other (Kidney stones) Pain Location: Diffuse Modifying Factors: Nothing Associated sign and symptoms: Nausea, Vomiting, Diarrhea, Abdominal Pain Past Medical History PAST MEDICAL HISTORY: Kidney Stones Surgical History: Denies all surgeries QUARTER INSPECTOR History: No Pertinent QUARTER INSPECTOR History Family History Family History: Unknown Social History Smoker: Other Alcohol: Denies ETOH Use Drugs: Marijuana Lives In: Home Constitutional: denies: chills, diaphoresis, fatigue, fever, malaise, sweats, weakness, others EENTM: denies: blurred vision, double vision, ear bleeding, ear discharge, ear drainage, ear pain, ear ringing, eye pain, eye redness, hearing loss, mouth pain, mouth swelling, nasal discharge, nose bleeding, nose congestion, nose pain, photophobia, tearing, throat pain, throat swelling, voice changes, others Respiratory: denies: cough, hemoptysis, orthopnea, SOB at rest, shortness of breath, SOB with excertion, stridor, wheezing, others Cardiovascular: denies: chest pain, dizzy spells, diaphoresis, Dyspnea on exertion, edema, irregular heart beat, left arm pain, lightheadedness, palpitations, PND, syncope, others Gastrointestinal: reports: abdominal pain, diarrhea, nausea, vomiting; denies: abdomen distended, blood streaked bowels, constipated, dysphagia, difficulty swallowing, hematemesis, melena, poor appetite, poor fluid intake, rectal bleeding, rectal pain, others Genitourinary: denies: abnormal vagina bleeding, burning, dyspareunia, dysuria, flank pain, frequency, hematuria, incontinence, pain, , vagina discharge, urgency, others Neurological: denies: dizziness, fainting, headache, left sided numbness, left sided weakness, numbness, paresthesia, pre-existing deficit, right sided numbness, right sided weakness, seizure, speech problems, tingling, tremors, weakness, others Musculoskeletal: denies: back pain, gout, joint pain, joint swelling, muscle pain, muscle stiffness, neck pain, others Integumetry: denies: bruises, change in color, change in hair/nails, dryness, laceration, lesions, lumps, rash, wounds, others Allergic/Immunocompromised: denies: Difficulty Healing, Frequent Infections, Hives, Itching, others Hematologic/Lymphatic: denies: anemia, blood clots, easy bleeding, easy bruising, swollen glands, others Endocrine: denies: excessive hunger, excessive sweating, excessive thirst, excessive urination, flushing, intolerance to cold, intolerance to heat, unexplained weight gain, unexplained weight loss, others Psychiatric: denies: anxiety, bipolar disorder, depression, hopeless, panic disorder, schizophrenia, sleepless, suicidal, others All Other Systems: Reviewed and Negative Physical Exam General Appearance: No Apparent Distress, Normal HEENT: Normal ENT Inspection, PERRL/EOMI Neck: Full Range of Motion, Non-Tender, Normal, Normal Inspection Respiratory: Chest Non-Tender, Lungs Clear, No Accessory Muscle Use, No Respiratory Distress, Normal Breath Sounds Cardiovascular: No Edema, No JVD, No Murmur, No Gallop, Normal Peripheral Pu lses, Regular Rate/Rhythm Breast Exam: Deferred Gastrointestinal: No Organomegaly, No Pulsatile Mass, Normal Bowel Sounds, Soft, Tenderness (Diffuse abdominal tenderness) Genitalia: Deferred Pelvic: Deferred Rectal: Deferred Extremities: No calf tenderness, Normal capillary refill, Normal inspection, Normal range of motion, Non-tender, No pedal edema Musculoskeletal : Apperance: Normal Neurologic: Alert, fish processor II-XII nml as Tested, No Motor Deficits, Normal Affect, Normal Mood, No Sensory Deficits Cerebellar Function: Normal Reflexes: Normal Skin: Dry, Normal Color, Warm Lymphatic: No Adenopathy Was a procedure done? Was a procedure done?: No GI differential Dx Differential Diagnosis: Gastroenteritis, UTI, Urolithiasis, Electrolyte Imbalance, Food Poisoning, Viral X-Ray, Labs, Meds, VS Vital Signs Date Time Temp Pulse Resp B/P (MAP) Pulse Ox O2 Delivery O2 Flow Rate FiO2 07/14/24 09:00 88 16 97/55 (69) 97 07/14/24 08:49 86 18 144/73 07/14/24 08:00 75 18 122/86 07/14/24 07:58 97.9 75 16 122/86 (98) 99 97.9 07/14/24 07:56 75 16 99 Room Air* 0 21 07/14/24 06:17 98.5 95 22 111/72 (85) 98 98.5 Lab Test 07/14/24 07:24 07/14/24 06:00 Range/Units White Blood Count 9.6 4.4-10.8 10^3/uL Red Blood Count 4.32 4.0-5.20 10^6/uL Hemoglobin 13.8 12.2-16.2 g/dL Hematocrit 38.7 36.0-46.0 % Mean Corpuscular Volume 89.6 80.0-100.0 fL Mean Corpuscular Hemoglobin 32.0 28.0-32.0 pg Mean Corpuscular Hemoglobin Concent 35.7 32.0-36.0 g/dL Red Cell Distribution Width 13.2 11.8-14.3 % Platelet Count 352 140-450 10^3/uL Mean Platelet Volume 8.0 6.9-10.8 fL Neutrophils (%) (Auto) 83.6 H 37.0-80.0 % Lymphocytes (%) (Auto) 11.9 10.0-50.0 % Monocytes (%) (Auto) 3.4 0.0-12.0 % Eosinophils (%) (Auto) 0.1 0.0-7.0 % Basophils (%) (Auto) 1.0 0.0-2.0 % Neutrophils # (Auto) 8.1 1.6-8.6 10 ^3/uL Lymphocytes # (Auto) 1.1 0.4-5.4 10 ^3/uL Monocytes # (Auto) 0.3 0-1.3 10 ^3/uL Eosinophils # (Auto) 0 0-0.8 10 ^3/uL Basophils # (Auto) 0.1 0-0.2 10 ^3/uL Nucleated Red Blood Cells 0.0 % Sodium Level 141 136-145 mmol/L Potassium Level 3.5 3.5-5.1 mmol/L Chloride Level 105 98-107 mmol/L Carbon Dioxide Level 25 20-31 mmol/L Anion Gap 11 5-15 Blood Urea Nitrogen 11 9-23 mg/dL Creatinine 0.61 0.550-1.02 mg/dL Glomerular Filtration Rate Calc 117 >90 mL/min BUN/Creatinine Ratio 18.0 10.0-20.0 Serum Glucose 133 H 74-106 mg/dL Lactic Acid Level 1.5 0.4-2.0 mmol/L Calcium Level 9.6 8.7-10.4 mg/dL Total Bilirubin 1.1 H 0.2-1.0 mg/dL Aspartate Amino Transferase (AST) 15 13-40 U/L Alanine Aminotransferase (ALT) 22 7-40 U/L Alkaline Phosphatase 61 46-116 U/L Total Protein 7.2 5.7-8.2 g/dL Albumin 4.7 3.2-4.8 g/dL Lipase 29 12-53 U/L Urine Color Light-yellow Yellow Urine Clarity Hazy H Clear Urine pH 8.5 5.0-9.0 Urine Specific [place] 1.023 1.001-1.035 Urine Protein Trace H Negative Urine Ketones 1+ H Negative Urine Blood Negative Negative /uL Urine Nitrite Negative Negative Urine Bilirubin Negative Negative Urine Urobilinogen Normal Negative mg/dL Urine Leukocyte Esterase Negative Negative /uL Urine RBC None seen 0 - 4 /hpf Urine Microscopic WBC 1 0-5 /HPF Urine Squamous Epithelial Cells Mod <5 /hpf Urine Amorphous Crystals Few None Seen /hpf Urine Bacteria Few H None Seen /hpf Urine Mucus Few None Seen Urine Glucose Normal Normal mg/dL Urine Test Negative Negative Current Medications Medications (Trade) Dose Ordered Sig/Carla Route Start Time Stop Time Status Last Admin Sodium Chloride 1,000 ml @ 1,000 mls/hr Q1H ONCE IV 07/14/24 07:30 07/14/24 08:29 DC 07/14/24 07:34 Ondansetron HCl (Zofran) 4 mg ONCE ONCE IV 07/14/24 07:30 07/14/24 07:31 DC 07/14/24 07:59 Morphine Sulfate 4 mg ONCE ONCE IV 07/14/24 07:30 07/14/24 07:31 DC 07/14/24 08:00 Haloperidol Lactate (Haldol) 10 mg ONCE ONCE IM 07/14/24 07:30 07/14/24 07:31 DC 07/14/24 08:00 Time of 1ST Reevaluation: 08:19 Reevaluation 1ST: Unchanged Patient Education/Counseling: Diagnosis, Treatment Family Education/Counseling: No Family Present Additional Information Previous medical encounters reviewed: 07/02/ for renal colic The following tests were ordered, and results were reviewed by me: CBC, BMP, UA Additional Information was gathered from interviewing the following independent historians: None I reviewed and agreed with the following test results read by other providers: None I discussed treatment and results with medical personnel and: Patient Comprehensive systems review obtained and negative except for what is stated in the HPI. Departure 1 Departure Time of Disposition: 10:22 (Patient presenting with likely gastritis. Patient had medication and now feels significantly better. Patient would like to go home. We will discharge patient home with outpatient follow up) Impression: Primary Impression: Abdominal pain Qualified Codes: R10.84 - Generalized abdominal pain Disposition: HOME / SELF CARE / HOMELESS Condition: Stable Additional Instructions: You likely have gastritis. It is important to stay well hydrated and well rested. Can take [id number] omeprazole daily for 2 weeks. This may help with your pain. If your symptoms worsen or you have any other concerns please return to the ER. Discharged With: Self Critical Care Note Critical Care Time?: No Stability Stability form required: No Heart Score Heart Score: Heart Score Response (Comments) Value History N/A 0 EKG N/A 0 Age N/A 0 Risk Factors N/A 0 Troponin N/A 0 Total 0 I personally scribed for GORDON ADAMS MD ([email or web address]) on 07/14/24 at 07:23. Electronically submitted by Tigre Matute ([email or web address]). GORDON ADAMS MD Jul 14, 2024 07:23
[2024-07-14 07:30] LABS: Urine Clarity Hazy (Clear)
[2024-07-14] MEDS: SODIUM CHLORIDE 0.9% 1,000 ML IV ONE (07:34)
[2024-07-14 07:46] LABS: Basophils # (auto) 0.1 10 ^3/uL (0-0.2); Eosinophils # (auto) 0 10 ^3/uL (0-0.8); Eosinophils % (auto) 0.1 % (0.0-7.0); Hematocrit 38.7 % (36.0-46.0); Hemoglobin 13.8 g/dL (12.2-16.2); Lymphocytes # (auto) 1.1 10 ^3/uL (0.4-5.4); Lymphocytes % (auto) 11.9 % (10.0-50.0); Mean Corpuscular Hgb Conc. 35.7 g/dL (32.0-36.0); Mean Corpuscular Volume 89.6 fL (80.0-100.0); Monocytes # (auto) 0.3 10 ^3/uL (0-1.3); Monocytes % (auto) 3.4 % (0.0-12.0); Neutrophils # (auto) 8.1 10 ^3/uL (1.6-8.6); Neutrophils % (auto) 83.6 % (37.0-80.0); Platelet Count (auto) 352 10^3/uL (140-450); Red Blood Cells 4.32 10^6/uL (4.0-5.20); Red Cell Distribution Width 13.2 % (11.8-14.3); White Blood Cell 9.6 10^3/uL (4.4-10.8)
[2024-07-14 07:55] LABS: Alanine Aminotransferase 22 U/L (7-40); Albumin 4.7 g/dL (3.2-4.8); Alkaline Phosphatase 61 U/L (46-116); Anion Gap 11 (5-15); Aspartate Aminotransferase 15 U/L (13-40); Blood Urea Nitrogen 11 mg/dL (9-23); Calcium 9.6 mg/dL (8.7-10.4); Carbon Dioxide 25 mmol/L (20-31); Chloride 105 mmol/L (98-107); Sodium 141 mmol/L (136-145); Total Protein 7.2 g/dL (5.7-8.2)
[2024-07-14 07:56] VITALS: PULSE 75; RESP 16; O2SAT 99
[2024-07-14 07:56] LABS: Bilirubin, Total 1.1 mg/dL (0.2-1.0); Glucose 133 mg/dL (74-106); Potassium 3.5 mmol/L (3.5-5.1)
[2024-07-14 07:58] VITALS: TEMP 97.9
[2024-07-14] MEDS: ONDANSETRON HCL 4 MG/2 ML VIAL IV ONE (07:59)
[2024-07-14] MEDS: MORPHINE SULFATE 4 MG/ML SYR/VIAL IV ONE (08:00)
[2024-07-14] MEDS: HALOPERIDOL LACTATE 5 MG/ML INJ VIAL IM ONE (08:00)
[2024-07-14 08:38] LABS: Lipase 29 U/L (12-53)
[2024-07-14 10:00] VITALS: BP 101/61; PULSE 92; RESP 16; O2SAT 96
== END 2024-07-14 10:44 | disposition home or self-care (01) ==
LOC: ER 05:53
DX: R10.84 Generalized abdominal pain (principal); F12.90 Cannabis use, unspecified, uncomplicated; F17.200 Nicotine dependence, unspecified, uncomplicated; Z87.442 Personal history of urinary calculi; Z79.899 Other long term (current) drug therapy
CPT/HCPCS: 36415; 80053; 81001; 81025; 83605; 83690; 85025; 96361; 96372; 96374; 96375; 99284; J1630; J2270; J2405; J7030